=== PATIENT | male | born 1945 | race Caucasian/White ===

== ENCOUNTER → 2016-06-03 | Outpatient (CLI) | payer OTHER ==
[~2016-06-03] MED LIST: AMLO-110 PO; ASPI81TA28 PO; CYAN500T PO; FOLI1TAB7 PO; IMDSR/30 PO; LPT10 PO; MECL1TAB40 PO; METO50TA16 PO; NTRGSL/4 UT; OPTIRAY 320 IV PRN; PRLSR20 PO; ZNTT/150 PO
--- NOTE | 2016-06-03 14:15 | DIAGNOSTIC IMAGING REPORT ---
CT ANGIO ABD/PELVIS COMBO CT DOSE: 1068.28 mGy.cm CLINICAL HISTORY: F/U AAA REPAIR, EVAL STABILITY OF GRAFT FOLLOWING SURGERY TECHNIQUE: Unenhanced images were obtained through the abdomen and pelvis. The examination was then repeated in a dynamic helical fashion during intravenous administration 120 cc Optiray 320. 5 minute delayed images were also acquired. Motility was performed COMPARISON STUDY: 02/04/2016 FINDINGS: Images of the lung bases reveal mild pulmonary emphysema. There is a stable 7 mm hypodensity within the left lobe of the liver. This 24 mm hypervascular lesion within the right lobe of the liver, similar to the prior study. This focus is hypervascular on arterial phase images. It is difficult to discern on unenhanced and 5 minute delayed images. There is an additional 6 mm hypervascular focus within the left lobe of the liver. The gallbladder is unremarkable in appearance. No splenic masses are visualized. No pancreatic masses are visualized. There is mild adrenal gland thickening unchanged the prior study. There are 2 left renal cysts measuring 24 x 23 mm respectively. There are no transition zones indicate bowel obstruction. There is small fat-containing left inguinal hernia. There is evidence for abdominal aortic aneurysm status post aortoiliac stent repair. The yurok aneurysm measures 4.5 cm in diameter. There are no findings to indicate an endoleak. There is no evidence of iliac or common femoral artery stenosis. There is no evidence of renal artery stenosis. There are 2 left renal arteries and 2 right renal arteries. There is no evidence of celiac or superior mesenteric artery stenosis. IMPRESSION: 1. Interval stent graft repair of an abdominal aortic aneurysm. No evidence of endoleak 2. Persistent indeterminate hypervascular hepatic lesions, the largest of which is located within the right lobe measuring 24 mm. Electronically signed by: Madhu Yarbrough M.D. 06/03/2016 2:13 PM Dictated Date/Time: 06/03/2016 2:03 PM
== END | disposition home or self-care (01) ==
LOC: C.CTS 13:10
PROVIDERS: ATTEND Family Medicine
DX: I71.4 Abdominal aortic aneurysm, without rupture (principal); K76.9 Liver disease, unspecified; F17.200 Nicotine dependence, unspecified, uncomplicated

== ENCOUNTER 2024-04-25 14:49 | Inpatient (IN) ==
[2024-04-25 17:05] LABS: Basophils # (auto) 0.03 K/uL (0.00-0.20); Basophils % (auto) 0.3 %; Eosinophils # (auto) 0.04 K/uL (0.00-0.50); Eosinophils % (auto) 0.3 %; Hematocrit (blood only) 36.4 % (42.0-52.0); Hemoglobin 11.9 g/dl (14.0-18.0); Immature Granulocytes # (auto) 0.05 K/uL (0.01-0.20); Immature Granulocytes % (auto) 0.4 %; Lymphocytes # (auto) 0.79 K/uL (1.20-3.40); Lymphocytes % (auto) 6.6 %; Mean Corpuscular Hemoglobin 34.9 pg (25.0-34.0); Mean Corpuscular Hgb Conc 32.7 g/dL (32.0-36.0); Mean Corpuscular Volume 106.7 fL (80.0-100.0); Mean Platelet Volume 10.7 fL (9.4-12.4); Monocytes # (auto) 1.01 K/uL (0.11-0.59); Monocytes % (auto) 8.4 %; Neutrophils # (auto) 10.08 K/uL (1.40-6.50); Platelet Count 255 K/uL (130-400); RDW Coefficient of Variation 12.8 % (11.5-14.5); RDW Standard Deviation 50.7 fL (36.4-46.3); Red Blood Count 3.41 M/uL (4.70-6.10)
[2024-04-25 17:15] LABS: Alanine Aminotransferase 15 U/L (7-52); Albumin Globulin Ratio 1.4 (0.9-2); Albumin Level 4.6 gm/dl (3.4-5.0); Alkaline Phosphatase 65 U/L (34-104); Anion Gap 11 (3-11); Aspartate Aminotransferase 29 U/L (13-39); BUN Creatinine Ratio 17.3 (10-20); Bilirubin,Total 0.5 mg/dl (0.2-1.0); Blood Urea Nitrogen 118 mg/dl (6-23); Calcium 9.8 mg/dl (8.6-10.3); Carbon Dioxide 20 mmol/L (21-32); Chloride 103 mmol/L (98-107); Globulin 3.2 gm/dl (2.5-4.0); Glucose 93 mg/dl (70-99(Fasting)); Potassium 7.2 mmol/L (3.5-5.1); Sodium 134 mmol/L (136-145); Total Protein 7.8 gm/dl (6.0-8.3)
[2024-04-25 17:21] LABS: Adenovirus PCR Not Detected (NotDetected); Bordetella parapertussis PCR Not Detected (NotDetected); Bordetella pertussis PCR Not Detected (NotDetected); Chlamydia pneumoniae PCR Not Detected (NotDetected); Coronavirus 229E PCR Not Detected (NotDetected); Coronavirus CoV-2 (COVID19)PCR Not Detected (NotDetected); Coronavirus HKU1 PCR Not Detected (NotDetected); Coronavirus NL63 PCR Not Detected (NotDetected); Coronavirus OC43PCR Not Detected (NotDetected); Human Metapneumovirus PCR Not Detected (NotDetected); Influenza A PCR Not Detected (NotDetected); Influenza B PCR Not Detected (NotDetected); Mycoplasma pneumoniae PCR Not Detected (NotDetected); Parainfluenza Virus 1 PCR Not Detected (NotDetected); Parainfluenza Virus 2 PCR Not Detected (NotDetected); Parainfluenza Virus 3 PCR Not Detected (NotDetected); Parainfluenza Virus 4 PCR Not Detected (NotDetected); Respiratory Syncytial VirusPCR Not Detected (NotDetected); Rhinovirus/Enterovirus PCR Not Detected (NotDetected)
[2024-04-25 17:52] LABS: INR 1.1 (0.9-1.1); Partial Thromboplastin Time 26 Seconds (21-31); Prothrombin Time 11.8 Seconds (9.0-12.0)
--- NOTE | 2024-04-25 17:55 | Emergency Department Note ---
Impression & Plan Acute renal failure, Acute hyperkalemia, Acute diarrhea, Metabolic acidosis ED Provider Note NAME: JOSELIN [id number] SYLVIE AGE: 78 SEX: M : 1945 ARRIVES VIA: Walk-In INFORMANT: Patient, ED PROVIDER(S): Edilberto Dickerson DO CHIEF COMPLAINT: Low blood pressure. HPI: The patient is an 78-year-old male who presented to the emergency department for an evaluation of low blood pressure and orthostasis. The patient came from the intermediate. He had a few days of loose stools. He denies having any black or tarry stools. He denies having any vomiting. He denies having any abdominal pain. He has noticed decreased urine output. Today he went to try to stand up and his cell and he felt as though he was going to pass out. The patient denies having any headaches. He did not strike his head or his back. The patient presented to the emergency department and had laboratory studies ordered from triage. ROS: See above HPI for pertinent positives & negatives. A total of 10 systems reviewed and were otherwise negative. PAST MEDICAL HISTORY: See Below PAST SURGICAL HISTORY: See Below FAMILY HISTORY: See Below SOCIAL HISTORY: See Below HOME MEDICATIONS: See Below ALLERGIES: See Below VITALS: See Below PHYSICAL EXAMINATION: GENERAL: Patient is awake alert in no acute distress patient is resting comfortably and showing no signs of anxiety EYES: The conjunctivae are clear. The pupils are round and reactive. EARS, NOSE, MOUTH AND THROAT: The nose is without any evidence of any deformity. Mucous membranes are dry NECK: The neck is nontender and supple. RESPIRATORY: Normal respiratory effort is noted there is no evidence of wheezing rhonchi or rales CARDIOVASCULAR: Regular rate and rhythm noted there no murmurs rubs or gallops normal S1 normal S2. GASTROINTESTINAL: The abdomen is soft. Abdomen is nontender. MUSCULOSKELETAL/EXTREMITIES: There is no evidence of gross deformity full range of motion is noted in the hips and shoulders. SKIN: Skin is warm and dry. Trace pedal edema was noted bilaterally. NEUROLOGIC: Patient is awake alert and oriented x3. MEDICAL DECISION MAKING: The patient is an 78-year-old male who presented to the emergency department from the intermediate for an evaluation of hypotension. The patient has been experiencing loose stools recently. He was found to have signs of acute renal failure with elevated potassium. He was treated with multiple fluid boluses as well as a bicarbonate drip. He was also treated with calcium insulin and dextrose. I discussed the patient's condition with the on-call [facility] hospitalist group. I also discussed the case with the [facility] home specialist group. The patient was improved on reevaluation. Vital signs were reassuring. Chest x-ray was not consistent with pulmonary edema. Triage Nursing notes reviewed. Prior medical records reviewed Vital Signs: reviewed and remarkable for no significant abnormalities Differential diagnosis: Infection, dehydration, metabolic abnormality, hypo/hyperglycemia, electrolyte disturbance, anemia, hypoxia, cardiac sources, intracerebral event, toxicologic, neurologic, as well as other pathologies. ER treatment provided: See below Diagnostics interpreted by me: ECG: EKG was obtained in the emergency department. My interpretation is sinus rhythm at 102 bpm. There is no PVCs noted. QRS complex had a duration of 90 ms. Cardiac Monitoring: An order was placed for continuous cardiac monitoring. The monitor shows a rate of 76 bpm with sinus rhythm. Laboratory studies: As stated above and show below. Imaging studies: See below. Radiographic imaging was reviewed by myself Consultation(s): I discussed this case with Dr. Malik who is on-call for the [facility] hospitalist group. I discussed this case with Dr. Klein who is on for [facility] nephrology. He recommends a bicarb drip and rehydration. ED COURSE: Procedures: none Critical Care: I have personally spent greater than 45 minutes of critical care time in the direct management of this patient. This includes bedside care, interpretation of diagnostic studies, and testing, discussion with consultants, patient, and family members, and other required patient management activities. This 45 minutes is in excess of all separately billable procedures. Past Med/Surg History Problem List (Updated 04/26/24 @ 01:29 by Edilberto Dickerson DO) Acute renal failure (Acute) Metabolic acidosis (Acute) Acute diarrhea (Acute) Hypermagnesemia Acute hyperkalemia (Acute) Acute renal failure (ARF) Encounter for pre-operative examination AAA (abdominal aortic aneurysm) without rupture hx of--repaired 2016 Medical History Chronic obstructive pulmonary disease inhaler daily/prn CAD (coronary artery disease) Hearing deficit Acid reflux Vertigo Hyperlipidemia Hypertension Surgical History History of cataract surgery History of appendectomy History of abdominal aortic aneurysm (AAA) repair (~03/2016) percurtaneous endovascular repair--Dr. Starks @ [facility] Family History Other Family history unobtainable Social History Smoking Status: Former smoker Tobacco Type: Cigarettes Smoking End Date: 2019; Hx Alcohol Use: No Hx Substance Use: No Preferred Language: Romanian Communication Ability: Effective Aircraft Engine Technician Required: No Beliefs That Will Affect Care: None Current Living Situation: Legal Guardian Current Living Situation Comment: Inmate - from correctional facility. Feels Safe at Home: Yes Safety Concerns: Feels Safe At This Time Assistive Devices: Cane and Wheelchair Allergies Allergies Allergy/AdvReac Type Severity Reaction Status Date / Time Penicillins Allergy Unknown PER RECORD Verified 02/10/22 07:41 Home Meds Home Medications Medication Instructions Recorded Confirmed albuterol sulfate 90 mcg/actuation 2 puff inhalation QID PRN 08/20/21 12/11/21 aerosol inhaler Shortness Of Breath aspirin 81 mg chewable tablet 81 mg PO DAILY 08/20/21 12/11/21 atorvastatin 10 mg tablet 10 mg PO DAILY 08/20/21 12/11/21 fluticasone 250 mcg-salmeterol 50 1 inh inhalation BID 08/20/21 12/11/21 mcg/dose blistr powdr for inhalation (Wixela Inhub) folic acid 1 mg tablet 1 mg PO DAILY 08/20/21 12/11/21 furosemide 40 mg tablet 40 mg PO BID 08/20/21 12/11/21 isosorbide mononitrate 30 mg 30 mg PO DAILY 08/20/21 12/11/21 tablet,extended release 24 hr lisinopril 20 mg tablet 20 mg PO DAILY 08/20/21 12/11/21 meclizine 12.5 mg tablet 12.5 mg PO TID 08/20/21 12/11/21 metoprolol tartrate 50 mg tablet 50 mg PO BID 08/20/21 12/11/21 nitroglycerin 0.4 mg sublingual 0.4 mg sublingual QID PRN Chest 08/20/21 12/11/21 tablet Pain Results & Data (ED) Vital Signs Vital Signs - 24 hr 04/25/24 14:58 04/25/24 17:18 04/25/24 17:23 Temperature 36.8 C Temperature Source Temporal Artery Scan Pulse Rate 75 78 Pulse Rate [Apical] Respiratory Rate 20 Respiratory Effort / Characteristics Non-Labored Spontaneous Respiratory Depth Normal Respiratory Pattern Regular Blood Pressure 99/63 L Blood Pressure [Right Arm] Blood Pressure Mean 75 Blood Pressure Mean [Right Arm] Pulse Oximetry 94 83 L Oxygen Delivery Method Room Air Room Air Oxygen Flow Rate Sepsis Recent Fever Within 48 Hours No Sepsis New/Unexplained Change in Mental Status No Sepsis Action Taken by Nursing No Action Required Oxygen Flow Rate - Titration 2 Pulse Oximetry Post Tiitration 99 04/25/24 17:23 04/25/24 19:00 Temperature Temperature Source Pulse Rate Pulse Rate [Apical] 75 92 H Respiratory Rate 19 30 H Respiratory Effort / Characteristics Non-Labored Spontaneous Non-Labored Spontaneous Respiratory Depth Normal Normal Respiratory Pattern Regular Blood Pressure Blood Pressure [Right Arm] 117/81 96/53 L Blood Pressure Mean Blood Pressure Mean [Right Arm] 93 67 Pulse Oximetry 99 96 Oxygen Delivery Method Nasal Cannula Nasal Cannula Oxygen Flow Rate 2 2 Sepsis Recent Fever Within 48 Hours Sepsis New/Unexplained Change in Mental Status Sepsis Action Taken by Nursing Oxygen Flow Rate - Titration Pulse Oximetry Post Tiitration Home Medications Current Medication List: was personally reviewed by me Laboratory Data Attestation: I reviewed the patient's lab results. 04/25/24 16:33 04/25/24 23:18 Lab Results 04/25/24 04/25/24 04/25/24 Range/Units 16:25 16:33 18:14 WBC 12.00 H (4.8-10.8) K/ul RBC 3.41 L (4.70-6.10) M/uL Hgb 11.9 L (14.0-18.0) g/dl Hct 36.4 L (42.0-52.0) % MCV 106.7 H (80.0-100.0) fL MCH 34.9 H (25.0-34.0) pg MCHC 32.7 (32.0-36.0) g/dL RDW Std Deviation 50.7 H (36.4-46.3) fL RDW Coeff of Corey 12.8 (11.5-14.5) % Plt Count 255 (130-400) K/uL MPV 10.7 (9.4-12.4) fL Immature Gran % (Auto) 0.4 % Neut % (Auto) 84.0 % Lymph % (Auto) 6.6 % Winkler % (Auto) 8.4 % Eos % (Auto) 0.3 % Baso % (Auto) 0.3 % Neut # (Auto) 10.08 H (1.40-6.50) K/uL Lymph # (Auto) 0.79 L (1.20-3.40) K/uL Winkler # (Auto) 1.01 H (0.11-0.59) K/uL Eos # (Auto) 0.04 (0.00-0.50) K/uL Baso # (Auto) 0.03 (0.00-0.20) K/uL Immature Gran # (Auto) 0.05 (0.01-0.20) K/uL PT 11.8 (9.0-12.0) Seconds INR 1.1 (0.9-1.1) APTT 26 (21-31) Seconds PTT Ratio 1.0 Sodium 134 L (136-145) mmol/L Potassium 7.2 H* (3.5-5.1) mmol/L Chloride 103 (98-107) mmol/L Carbon Dioxide 20 L (21-32) mmol/L Anion Gap 11 (3-11) BUN 118 H (6-23) mg/dl Creatinine 6.84 H* (0.6-1.4) mg/dl Est Cr Clr Drug Dosing Not Reportable eGFR 7.57 BUN/Creatinine Ratio 17.3 (10-20) Glucose 93 (70-99(Fasting)) mg/dl Calcium 9.8 (8.6-10.3) mg/dl Magnesium 3.1 H (1.7-2.4) mg/dl Total Bilirubin 0.5 (0.2-1.0) mg/dl AST 29 (13-39) U/L ALT 15 (7-52) U/L Alkaline Phosphatase 65 (34-104) U/L Troponin I High Sens 23.1 H (0-20) pg/ml Total Protein 7.8 (6.0-8.3) gm/dl Albumin 4.6 (3.4-5.0) gm/dl Globulin 3.2 (2.5-4.0) gm/dl Albumin/Globulin Ratio 1.4 (0.9-2) Urine Color Yellow Urine Appearance Clear (Clear) Urine pH 5.0 (4.5-7.5) Ur Specific [place] 1.015 (1.000-1.030) Urine Protein Trace H (Negative) Urine Glucose (UA) Negative (Negative) Urine Ketones Negative (Negative) Urine Blood Negative (Negative) Urine Nitrite Negative (Negative) Urine Bilirubin Negative (Negative) Urine Urobilinogen Negative (Negative) Ur Leukocyte Esterase Negative (Negative) Urine WBC (Auto) 0-5 (0-5) /hpf Urine RBC (Auto) 0-2 (0-2) /hpf U Hyaline Cast (Auto) 6-10 H (0-2) /lpf U Epithel Cells (Auto) 0-2 (0-2) /hpf Urine Bacteria (Auto) None Seen (None Seen) Hyaline Casts Present A (None Presnt) /lpf Urine Sperm Present A (None Prsent) Adenovirus (PCR) Not Detected (NotDetected) B. pertussis DNA (PCR) Not Detected (NotDetected) B.parapertussis DNA PCR Not Detected (NotDetected) C. pneumoniae DNA (PCR) Not Detected (NotDetected) Coronavirus OC43 (PCR) Not Detected (NotDetected) Coronavirus HKU1 (PCR) Not Detected (NotDetected) Coronavirus 229E (PCR) Not Detected (NotDetected) SARS-CoV-2 (PCR) Not Detected (NotDetected) Coronavirus NL63 (PCR) Not Detected (NotDetected) Human Metapneumovir PCR Not Detected (NotDetected) Influenza Type A (PCR) Not Detected (NotDetected) Influenza Type B (PCR) Not Detected (NotDetected) M. pneumoniae (PCR) Not Detected (NotDetected) Parainfluenza 1 (PCR) Not Detected (NotDetected) Parainfluenza 2 (PCR) Not Detected (NotDetected) Parainfluenza 3 (PCR) Not Detected (NotDetected) Parainfluenza 4 (PCR) Not Detected (NotDetected) RSV (PCR) Not Detected (NotDetected) Entero/Rhino (PCR) Not Detected (NotDetected) Administered Medications Albuterol (Albut/Ipratrop 3mg/0.5mg Neb 3 Ml Vial) 3 ml INH Q6R EULA Stop: 05/25/24 20:06 Last Admin: 04/25/24 21:07 Dose: 3 ml Documented By: EML Sodium Bicarbonate 100 meq/ (Dextrose) 1,100 mls @ 150 mls/hr IV .Q7H20M EULA Stop: 04/26/24 20:14 Last Admin: 04/25/24 20:48 Dose: 150 mls/hr Documented By: ESG Metoprolol Tartrate (Metoprolol Tartrate 50 Mg Tab) 50 mg PO BID EULA Stop: 05/25/24 20:59 Last Admin: 04/25/24 22:40 Dose: 50 mg Documented By: ESSharon Sodium Zirconium Cyclosilicate (Sodium Zirconium Cyclosilicate 10 Gm Packet) 10 gm PO TID@0700,1400,2300 EULA Stop: 04/27/24 14:01 Last Admin: 04/25/24 22:40 Dose: 10 gm Documented By: ESSharon Discontinued Medications Dextrose (Dextrose 50% 50 Ml Syringe) 50 ml IV NOW STA Stop: 04/25/24 17:28 Last Admin: 04/25/24 18:34 Dose: 50 ml Documented By: LEIA Dextrose (Dextrose 50% 50 Ml Syringe) Confirm Administered Dose 50 ml IV .STK- MED ONE Stop: 04/25/24 20:40 Last Admin: 04/25/24 20:45 Dose: 50 ml Documented By: MARTINEZ Dextrose (Dextrose 50% 50 Ml Syringe) 50 ml IV NOW ONE Stop: 04/26/24 00:35 Last Admin: 04/26/24 01:10 Dose: 50 ml Documented By: ESSharon Calcium Chloride 1,000 mg/ (Dextrose) 60 mls @ 240 mls/hr IV NOW STA Stop: 04/25/24 17:41 Last Infusion: 04/25/24 18:30 Dose: Infused Documented By: Admin: 04/25/24 18:12 Dose: 240 mls/hr Documented By: LEIA Sodium Chloride (Nss) 1,000 mls @ 999 mls/hr IV .Q1H1M ONE Stop: 04/25/24 18:35 Last Infusion: 04/25/24 22:43 Dose: Infused Documented By: Infusion: 04/25/24 20:05 Dose: 0 mls/hr Documented By: Infusion: 04/25/24 19:28 Dose: 999 mls/hr Documented By: Infusion: 04/25/24 19:09 Dose: 0 mls/hr Documented By: Admin: 04/25/24 19:05 Dose: 999 mls/hr Documented By: LEIA Sodium Chloride (Nss) 1,000 mls @ 999 mls/hr IV .Q1H1M ONE Stop: 04/25/24 19:26 Last Infusion: 04/25/24 22:44 Dose: Infused Documented By: Admin: 04/25/24 21:14 Dose: 999 mls/hr Documented By: MARTINEZ Calcium Gluconate () 1,000 mg in 60 mls @ 240 mls/hr IV NOW STA Stop: 04/26/24 00:54 Last Admin: 04/26/24 01:05 Dose: 240 mls/hr Documented By: MARTINEZ Insulin Human Regular 10 units (/ Syringe) 10 mls @ 30 mls/min IV ONE STA Stop: 04/26/24 00:43 Last Admin: 04/26/24 01:10 Dose: 30 mls/min Documented By: MARTINEZ Co-signed By: FRANCISCO JAVIER Insulin Human Regular (Novolin-R Insulin Per Unit Charge) 10 units IV NOW STA Stop: 04/25/24 17:28 Last Admin: 04/25/24 18:34 Dose: 10 units Documented By: LEIA Co-signed By: CAW Sodium Bicarbonate (Sodium Bicarb 8.4% Inj 50 Meq/50 Ml Syr) 50 meq IV NOW STA Stop: 04/25/24 20:08 Last Admin: 04/25/24 20:30 Dose: 50 meq Documented By: MARTINEZ Imaging Data Attestation: I personally reviewed and interpreted this imaging study as follows: My Impression: 1 view chest x-ray was obtained in the emergency department. My interpretation is no definite infiltrate, final report below. CT of the abdomen and pelvis was obtained in the emergency department. My interpretation is no free air or signs of bowel obstruction, final report below. Radiologist's Impression: Chest X-Ray 12/03/24 17:30 EXAM: X-ray chest one-view portable CLINICAL HISTORY: Short of breath PRIORS: 04/21/2016 TECHNIQUE: Portable upright AP view chest FINDINGS: The chest is well-expanded. No airspace consolidation, effusion or congestive changes. Heart size is top normal. No pneumothorax. Trachea is patent. Osseous structures demonstrate no acute abnormality. No radiopaque foreign body. IMPRESSION: No plain film evidence of an acute cardiopulmonary process. Electronically signed by Emani Belle 04-25-2024 6:31 PM Abdomen/Pelvis CT 04/25/24 17:35 EXAMINATION: Abdomen and pelvis CT without CLINICAL HISTORY: Acute renal failure PRIORS: 06/03/2016 CT abdomen TECHNIQUE: Contiguous axial images were obtained through the abdomen and pelvis without the use of intravenous contrast. Sagittal and coronal reformations are supplied. FINDINGS: Pulmonary emphysema present at the lung bases. Motion artifact degrades image quality. Evaluation of solid organs is limited without the use of intravenous contrast. Allowing for this, the liver, gallbladder, pancreas, spleen, stomach, adrenals, and IVC are normal in morphology. An aortic stent is present with no surrounding fluid and not further evaluated. Allowing for noncontrast enhanced technique, kidneys appear atrophic. No hydronephrosis. Bilateral perinephric stranding present suggesting underlying medical renal disease. A left renal low-attenuation lesion present projecting off of the lower pole measuring fluid attenuation and 3.6 cm, likely representing a simple cyst. No retroperitoneal adenopathy or hematoma. No ascites. Small umbilical hernia containing fat. Urinary bladder distends normally. Small left inguinal hernia present containing fat. Prostate normal in size. A moderate amount of formed stool present in the colon. No dilated loops of bowel. No inflammatory change in the right lower quadrant. In bone windows, moderate osseous demineralization and degenerative change throughout the lumbar spine. No high-grade compression fracture. IMPRESSION: 1. No CT evidence of an acute abdominal or pelvic abnormality. 2. No hydronephrosis or obstructing calculus. 3. Postsurgical change of the aorta with graft in place. Electronically signed by Emani Belle 04-25-2024 6:07 PM Discharge Plan Visit Data Chief Complaint: Hypotension Stated Complaint: HYPOTENTION, UNABLE TO STAND/ASSISTANCE, DIARRHEA ED Provider: Edilberto Dickerson Discharge Problem: Acute renal failure, Acute hyperkalemia, Acute diarrhea, Metabolic acidosis Patient Disposition: Admitted As Inpatient Discharge Instructions Interventions: ED Discharge Assessment Last Done: 04/25/24 19:47 Discharge Problem: Acute renal failure Qualifiers: Acute renal failure type: unspecified Qualified Code(s): N17.9 - Acute kidney failure, unspecified
--- NOTE | 2024-04-25 18:07 | CT Scan Report ---
EXAMINATION: Abdomen and pelvis CT without CLINICAL HISTORY: Acute renal failure PRIORS: 06/03/2016 CT abdomen TECHNIQUE: Contiguous axial images were obtained through the abdomen and pelvis without the use of intravenous contrast. Sagittal and coronal reformations are supplied. FINDINGS: Pulmonary emphysema present at the lung bases. Motion artifact degrades image quality. Evaluation of solid organs is limited without the use of intravenous contrast. Allowing for this, the liver, gallbladder, pancreas, spleen, stomach, adrenals, and IVC are normal in morphology. An aortic stent is present with no surrounding fluid and not further evaluated. Allowing for noncontrast enhanced technique, kidneys appear atrophic. No hydronephrosis. Bilateral perinephric stranding present suggesting underlying medical renal disease. A left renal low-attenuation lesion present projecting off of the lower pole measuring fluid attenuation and 3.6 cm, likely representing a simple cyst. No retroperitoneal adenopathy or hematoma. No ascites. Small umbilical hernia containing fat. Urinary bladder distends normally. Small left inguinal hernia present containing fat. Prostate normal in size. A moderate amount of formed stool present in the colon. No dilated loops of bowel. No inflammatory change in the right lower quadrant. In bone windows, moderate osseous demineralization and degenerative change throughout the lumbar spine. No high-grade compression fracture. IMPRESSION: 1. No CT evidence of an acute abdominal or pelvic abnormality. 2. No hydronephrosis or obstructing calculus. 3. Postsurgical change of the aorta with graft in place. Electronically signed by Emani Belle 04-25-2024 6:07 PM
[2024-04-25] MEDS: CALCIUM CHLORIDE 10% 1,000 MG in DEXTROSE 5% 50 ML IV STA (18:12)
[2024-04-25 18:16] LABS: Magnesium 3.1 mg/dl (1.7-2.4)
[2024-04-25 18:30] LABS: Troponin I High Sensitivity 23.1 pg/ml (0-20)
--- NOTE | 2024-04-25 18:31 | XRay Report ---
EXAM: X-ray chest one-view portable CLINICAL HISTORY: Short of breath PRIORS: 04/21/2016 TECHNIQUE: Portable upright AP view chest FINDINGS: The chest is well-expanded. No airspace consolidation, effusion or congestive changes. Heart size is top normal. No pneumothorax. Trachea is patent. Osseous structures demonstrate no acute abnormality. No radiopaque foreign body. IMPRESSION: No plain film evidence of an acute cardiopulmonary process. Electronically signed by Emani Belle 04-25-2024 6:31 PM
[2024-04-25] MEDS: NovoLIN-R INSULIN PER UNIT CHARGE IV STA (18:34)
[2024-04-25] MEDS: DEXTROSE 50% 50 ML SYRINGE IV STA (18:34)
[2024-04-25 19:02] LABS: Appearance Urine Clear (Clear); Bacteria Urine Automated None Seen (None Seen); Bilirubin Urine Negative (Negative); Blood Urine Negative (Negative); Color Urine Yellow; Epithelial Cell Urine Auto 0-2 /hpf (0-2); Glucose Urine UA Negative (Negative); Hyaline Casts Urine Present /lpf (None Presnt); Ketones Urine Negative (Negative); Leukocyte Esterase Urine Negative (Negative); Nitrite Urine Negative (Negative); Protein Urine Trace (Negative); RBC Urine Automated 0-2 /hpf (0-2); Specific Gravity Urine 1.015 (1.000-1.030); Sperm Urine Present (None Prsent); Urobilinogen Urine Negative (Negative); WBC Urine Automated 0-5 /hpf (0-5)
[2024-04-25] MEDS: SODIUM CHLORIDE 0.9% 1,000 ML IV ONE ×2 (19:05→21:14)
--- NOTE | 2024-04-25 19:06 | History & Physical Report ---
Date of Service April 25, 2024 Assessment & Plan (1) Acute renal failure (ARF): (2) Acute hyperkalemia: (3) Hypermagnesemia: (4) Acute diarrhea: (5) Chronic obstructive pulmonary disease: (6) CAD (coronary artery disease): (7) Hypertension: (8) History of abdominal aortic aneurysm (AAA) repair: Plan Patient 78-year-old prisoner presents with acute weakness and falling found to have severe acute renal failure in the setting of diarrheal illness and numerous nephrotoxins. Patient is critically ill high risk for poor outcomes if not cared for in the hospital. Patient requires ICU level care, frequent laboratory monitoring, specialty consultation and frequent monitoring Communication with wood heel flap inserter for plan to admit to ICU Communication with ED physician who communicated with nephrology. Treat hyperkalemia in usual manner for insulin, calcium, IV fluids. Start bicarb drip and Lokelma Continue inhalers and nebulizers Frequent laboratory monitoring Initiated conversation with patient that he may need hemodialysis and would need to give consent for this procedure. Patient seem to understand Echocardiogram in the setting of hypertension, patient was on a fairly large dose of Lasix. No history reported of heart failure. Patient has not had any diarrhea here in the emergency department, check stool bio fire and stool for C. difficile. Will hold on any treatments for diarrhea until further data available and able to observed patient's stool habits. History of Present Illness Chief Complaint: Diarrhea, weakness and fall Primary Care Provider: NADE[facility] Patient is a 78-year-old gentleman prisoner from [place] presented to the emergency department with above complaints. Workup in the emergency room was significant for acute renal failure and hyperkalemia. He was given insulin and calcium in the emergency department. Referred to our service for further evaluation. Time my evaluation patient is able to answer some simple questions. States his head 4-5 episodes of diarrhea daily for the past 3 days. No blood in the stool. Has been taking his medications as prescribed. Denies any chest pain. No shortness of breath. No significant abdominal pain. Never been told that he has issues with his kidneys before.He is aware that he has COPD and uses daily inhalers. On medications for hypertension. Allergies Allergy/AdvReac Type Severity Reaction Status Date / Time Penicillins Allergy Unknown PER RECORD Verified 02/10/22 07:41 Home Medications Medication Instructions Recorded Confirmed Type albuterol sulfate 90 mcg/actuation 2 puff inhalation QID PRN 08/20/21 12/11/21 History aerosol inhaler Shortness Of Breath aspirin 81 mg chewable tablet 81 mg PO DAILY 08/20/21 12/11/21 History atorvastatin 10 mg tablet 10 mg PO DAILY 08/20/21 12/11/21 History fluticasone 250 mcg-salmeterol 50 1 inh inhalation BID 08/20/21 12/11/21 History mcg/dose blistr powdr for inhalation (Wixela Inhub) folic acid 1 mg tablet 1 mg PO DAILY 08/20/21 12/11/21 History furosemide 40 mg tablet 40 mg PO BID 08/20/21 12/11/21 History isosorbide mononitrate 30 mg 30 mg PO DAILY 08/20/21 12/11/21 History tablet,extended release 24 hr lisinopril 20 mg tablet 20 mg PO DAILY 08/20/21 12/11/21 History meclizine 12.5 mg tablet 12.5 mg PO TID 08/20/21 12/11/21 History metoprolol tartrate 50 mg tablet 50 mg PO BID 08/20/21 12/11/21 History nitroglycerin 0.4 mg sublingual 0.4 mg sublingual QID PRN Chest 08/20/21 12/11/21 History tablet Pain Past Med/Surg History Problem List (Updated 04/25/24 @ 19:12 by Barry White DO) Acute diarrhea Hypermagnesemia Acute hyperkalemia Acute renal failure (ARF) Encounter for pre-operative examination AAA (abdominal aortic aneurysm) without rupture hx of--repaired 2015 Medical History Chronic obstructive pulmonary disease inhaler daily/prn CAD (coronary artery disease) Hearing deficit Acid reflux Vertigo Hyperlipidemia Hypertension Surgical History History of cataract surgery History of appendectomy History of abdominal aortic aneurysm (AAA) repair (~03/2016) percurtaneous endovascular repair--Dr. Starks @ [facility] Family History Other Family history unobtainable Social History Smoking Status: Former smoker Preferred Language: Cypriot Communication Ability: Effective Senior Information Security Architect Required: No Beliefs That Will Affect Care: None Current Living Situation: Other Current Living Situation Comment: Incarcerated at [facility] Feels Safe at Home: Yes Review of Systems Review of Systems: Pertinent positive and negative review of systems as mentioned in the HPI Physical Exam Physical Exam: Constitutional: Alert, ill in appearance, nontoxic HEENT: Mucous membranes dry sclera clear Neck: Soft, no adenopathy Lungs: Decreased breath sounds, poor airflow, prolonged expiratory phase, expiratory wheezes CV: S1-S2, regular Abdomen: Soft, nontender, nondistended Extremities: No significant edema Musculoskeletal: No significant joint tenderness Neuro: No focal deficits, generalized weakness Psych: Cooperative, normal mood Results & Data Results & Data Vital Signs (Past 12 Hours) Vital Signs Temp Pulse Pulse Resp BP BP Pulse Ox 04/25/24 17:23 75 19 117/81 99 04/25/24 17:23 83 L 04/25/24 17:18 78 04/25/24 14:58 36.8 C 75 20 99/63 L 94 O2 Del Method O2 Flow Rate 04/25/24 17:23 Nasal Cannula 2 04/25/24 17:23 Room Air 04/25/24 17:18 04/25/24 14:58 Room Air Diagnostic Findings Reviewed imaging, laboratory and diagnostic studies. Pertinent findings as below. Personally reviewed chest x-ray, emphysematous lungs, no effusions, no infiltrative process Reviewed CT of the abdomen and pelvis no acute abnormalities, no hydronephrosis Respiratory viral panel negative Personally reviewed EKG sinus rhythm with some PVCs, slightly peaked T waves in leads II, V3, V4 Urinalysis significant for trace proteins Troponin 23 Magnesium 3.1 Creatinine 6.84 BUN 118 Bicarb 20, anion gap 11 Potassium 7.2 Sodium 134 Hemoglobin 11.9 WBCs 12.0
[2024-04-25 19:48] LABS: Base Excess VBG -11.2 mEq/L; HCO3 VBG 18 mmol/L; Oxygen Saturation VBG < 60.0 %; PCO2 VBG 51 mmHg (38-50); PO2 VBG 31 mmHg; pH VBG 7.15 (7.36-7.41)
[2024-04-25] MEDS ORDERED: STAT IV/IM STA (20:07)
[2024-04-25] MEDS ORDERED: ALBUT/IPRATROP 3MG/0.5MG NEB 3 ML VIAL NEB PRN (20:07)
[2024-04-25 20:11] LABS: BUN Creatinine Ratio 18.2 (10-20); Calcium 9.6 mg/dl (8.6-10.3); Creatinine Clr Calc Pharmacy 9.9 ml/min
[2024-04-25 20:14] LABS: Potassium 6.7 mmol/L (3.5-5.1)
[2024-04-25] MEDS: SODIUM BICARB 8.4% INJ 50 MEQ/50 ML SYR IV STA (20:30)
[2024-04-25] MEDS: DEXTROSE 50% 50 ML SYRINGE IV ONE (20:45)
[2024-04-25] MEDS: SODIUM BICARBONATE 8.4% 100 MEQ in DEXTROSE 5% 1,000 ML IV SCH (20:48)
[2024-04-25] MEDS ORDERED: GLUCOSE 40% GEL 15 GM TUBE PO PRN (20:54)
[2024-04-25] MEDS ORDERED: GLUCOSE 10 TAB/TUBE PO PRN (20:54)
[2024-04-25] MEDS ORDERED: CARBOHYDRATES FOR HYPOGLYCEMIA PO PRN (20:54)
[2024-04-25] MEDS ORDERED: DEXTROSE 50% 50 ML SYRINGE IV PRN (20:54)
[2024-04-25] MEDS ORDERED: GLUCAGON FOR INJ 1 MG VIAL SQ PRN (20:54)
[2024-04-25] MEDS ORDERED: SODIUM ZIRCONIUM CYCLOSILICATE 10 GM PACKET PO SCH (21:00)
[2024-04-25] MEDS: ALBUT/IPRATROP 3MG/0.5MG NEB 3 ML VIAL INH SCH (21:07)
--- NOTE | 2024-04-25 21:15 | Critical Care Consultation ---
Date of Consultation April 25, 2024 Assessment & Plan (1) Acute renal failure (ARF): Reason Critically Ill: 78-year-old male with history of COPD, CAD, HTN, HLD, AAA, presents to the ICU for management of acute renal failure with hyperkalemia and metabolic acidosis after 3 days of diarrhea in which the patient presents hypovolemic. Neuro - [facility] ICU: Negative Cardiac - Diastolic heart failureappears stable as of now. Patient currently dehydrated. Continue with fluid resuscitation. Hold Lasix in the setting of acute renal failure. Monitor strict I's and O's, daily weights. Follow-up TTE AAAstatus post graft. No issue at this time HTNhold lisinopril in the setting of renal failure. Continue Metoprolol CADcontinue ASA Respiratory - COPDstable at this time although patient reports using rescue inhaler multiple times per day despite use of LABA -Currently maintaining oxygen saturations on nasal cannula, wean as tolerated for SaO2 90% - Continue with scheduled nebs for now -Chest x-ray unremarkable -Continuous monitoring pulse ox GI - N.p.o. for now RENAL/LYTES - Acute renal failure/hyperkalemia/metabolic acidosislikely prerenal in the setting of Dehydration, patient also taking lisinopril and Lasix. -Nephrology consulted and admitted to ICU for medical management at this time to see if renal function improves. No indication for hemodialysis emergently. - Started on bicarb drip. Trend VBG's - Hyperkalemia improving. Initially treated with calcium and insulin. Giving bicarb drip. Trend BMPs Q4. Starting on Lokelma - Foleystrict I's and O's ENDO - No history of diabetes or thyroid disease. ICU hyperglycemic protocol HEME - H&H stable, monitor routine CBC ID - Currently afebrile. Mild leukocytosis. Procalcitonin currently pending - Stool bio fire pending -Hold on antibiotics for now and trend fever curve LINES/IV ACCESS - Peripheral IVs DVT PROPHYLAXIS - SCDs I have personally spent 51 minutes of critical care time in the direct management of this patient. This is a life/limb threatening event. This includes time spent evaluating patient, direct bedside care, chart review, placing orders, interpretation of diagnostic studies, discussion with consultants, patient, and family members, as well as other required patient management activities. This time is exclusive of all separately billable procedures, and teaching time and separate from and in addition to any other critical care service time. Thank you for allowing us to participate in the care of this patient. Please refer to my attending physician's documentation for any further recommendations. (2) Acute hyperkalemia: (3) Metabolic acidosis: (4) Acute diarrhea: (5) CAD (coronary artery disease): (6) Hypertension: (7) Hyperlipidemia: (8) Chronic obstructive pulmonary disease: History of Present Illness Attending Physician: Barry White DO History of Present Illness Patient is a 78-year-old male w/ PMH COPD, diastolic heart failure, CAD, HTN who presents from the long-term with acute weakness and fall after having 3 days of diarrhea. BMP consistent with acute renal failure and hyperkalemia which was initially treated with calcium gluconate and insulin and D50. He was given 2 L crystalloid bolus in the emergency department and is found to have significant metabolic acidosis and was started on bicarb drip. Patient now being admitted to ICU for management of acute renal failure, hyperkalemia, and metabolic acidosis. Nephrology consulted and no plans for emergent dialysis at this time but will continue with medical management and hope that renal function improves. On arrival to the ICU the patient is alert and oriented without acute distress, currently hemodynamically stable. Patient conference report of 3 days of diarrhea in which at times he was incontinent, and had significant weakness with 1 nontraumatic fall. He reports that he was taking his lisinopril and Lasix as prescribed at that time. He also reports shortness of breath intermittently which has been ongoing for a long time, and he uses a rescue Inhaler multiple times throughout the day. He also reports lower back pain which is also chronic. He denies headache, dizziness, syncopal events, changes in vision, numbness or tingling, muscular weakness, fevers, cough or congestion, chest pain or palpitations, abdominal pain, nausea or vomiting, swelling in hands or feet. Allergies Allergy/AdvReac Type Severity Reaction Status Date / Time Penicillins Allergy Unknown PER RECORD Verified 02/10/22 07:41 Home Medications Medication Instructions Recorded Confirmed Type albuterol sulfate 90 mcg/actuation 2 puff inhalation QID PRN 08/20/21 12/11/21 History aerosol inhaler Shortness Of Breath aspirin 81 mg chewable tablet 81 mg PO DAILY 08/20/21 12/11/21 History atorvastatin 10 mg tablet 10 mg PO DAILY 08/20/21 12/11/21 History fluticasone 250 mcg-salmeterol 50 1 inh inhalation BID 08/20/21 12/11/21 History mcg/dose blistr powdr for inhalation (Wixela Inhub) folic acid 1 mg tablet 1 mg PO DAILY 08/20/21 12/11/21 History furosemide 40 mg tablet 40 mg PO BID 08/20/21 12/11/21 History isosorbide mononitrate 30 mg 30 mg PO DAILY 08/20/21 12/11/21 History tablet,extended release 24 hr lisinopril 20 mg tablet 20 mg PO DAILY 08/20/21 12/11/21 History meclizine 12.5 mg tablet 12.5 mg PO TID 08/20/21 12/11/21 History metoprolol tartrate 50 mg tablet 50 mg PO BID 08/20/21 12/11/21 History nitroglycerin 0.4 mg sublingual 0.4 mg sublingual QID PRN Chest 08/20/21 12/11/21 History tablet Pain Patient History Medical History Chronic obstructive pulmonary disease inhaler daily/prn CAD (coronary artery disease) Hearing deficit Acid reflux Vertigo Hyperlipidemia Hypertension Surgical History History of cataract surgery History of appendectomy History of abdominal aortic aneurysm (AAA) repair (~03/2016) percurtaneous endovascular repair--Dr. Starks @ [facility] Family History Other Family history unobtainable Social History Smoking Status: Former smoker Preferred Language: Croatian Communication Ability: Effective Inspector And Unloader Required: No Beliefs That Will Affect Care: None Current Living Situation: Other Current Living Situation Comment: Incarcerated at [facility] Feels Safe at Home: Yes Review of Systems Review of Systems: All systems reviewed & are unremarkable except as noted in HPI & below Physical Exam Constitutional: + obese, cooperative and comfortable Eyes: PERRL, conjunctivae normal, anicteric sclerae ENMT: external ear and nose normal, oropharynx normal Neck: trachea midline, no thyromegaly Respiratory: Diminished breath sounds bilaterally in all lung [place], no wheezes or crackles auscultated. No labored breathing or tachypnea. Symmetrical chest wall movement Cardiovascular: Rate/Rhythm: regular rate and regular rhythm Heart Sounds: normal S1 and normal S2; no murmur Extremities: no edema Gastrointestinal (Abdomen): normal bowel sounds, soft, nontender, no hepatosplenomegaly Musculoskeletal: no cyanosis or clubbing, extremities motor strength 5/5 Skin: no rashes, warm and dry Neurologic: PERRL, EOMI, accommodation nl, no face palsy, no dysarthria Psychiatric: A+Ox3, euthymic affect Results & Data Results & Data Vital Signs (Past 12 Hours) Vital Signs Temp Pulse Pulse Resp BP BP Pulse Ox 04/25/24 19:47 95 H 25 H 113/71 99 04/25/24 19:40 113/71 04/25/24 19:00 92 H 30 H 96/53 L 96 04/25/24 17:23 75 19 117/81 99 04/25/24 17:23 83 L 04/25/24 17:18 78 04/25/24 14:58 36.8 C 75 20 99/63 L 94 O2 Del Method O2 Flow Rate 04/25/24 19:47 Nasal Cannula 2 04/25/24 19:40 04/25/24 19:00 Nasal Cannula 2 04/25/24 17:23 Nasal Cannula 2 04/25/24 17:23 Room Air 04/25/24 17:18 04/25/24 14:58 Room Air Coding Level of Care Code 07275 CRITICAL CARE 1ST 30-74M Diagnoses Acute renal failure (ARF) N17.9 Acute hyperkalemia E87.5 Metabolic acidosis E87.20 Acute diarrhea R19.7 CAD (coronary artery disease) I25.10 Hypertension I10 Hyperlipidemia E78.5 Chronic obstructive pulmonary disease J44.9
[2024-04-25] MEDS: SODIUM ZIRCONIUM CYCLOSILICATE 10 GM PACKET PO SCH (22:40)
[2024-04-25] MEDS: METOPROLOL TARTRATE 50 MG TAB PO SCH (22:40)
[2024-04-25 23:25] LABS: Base Excess VBG -6.6 mEq/L; HCO3 VBG 20 mmol/L; Oxygen Saturation VBG < 60.0 %; PCO2 VBG 44 mmHg (38-50); PO2 VBG 32 mmHg; pH VBG 7.27 (7.36-7.41)
[2024-04-26 00:26] LABS: BUN Creatinine Ratio 18.9 (10-20); Calcium 8.8 mg/dl (8.6-10.3); Creatinine Clr Calc Pharmacy 11.3 ml/min; Magnesium 2.6 mg/dl (1.7-2.4); Potassium 6.7 mmol/L (3.5-5.1)
[2024-04-26] MEDS: CALCIUM GLUCONATE 1,000 MG/60 ML BAG IV STA (01:05)
[2024-04-26] MEDS: DEXTROSE 50% 50 ML SYRINGE IV ONE (01:10)
[2024-04-26] MEDS: INSULIN HUMAN REGULAR PER UNIT 10 UNITS in SYRINGE 9.9 ML IV STA (01:10)
[2024-04-26 04:49] LABS: Base Excess VBG -2.2 mEq/L; HCO3 VBG 23 mmol/L; Oxygen Saturation VBG < 60.0 %; PCO2 VBG 41 mmHg (38-50); PO2 VBG 32 mmHg; pH VBG 7.36 (7.36-7.41)
[2024-04-26 04:54] LABS: Hematocrit (blood only) 30.9 % (42.0-52.0); Hemoglobin 10.1 g/dl (14.0-18.0); Mean Corpuscular Hgb Conc 32.7 g/dL (32.0-36.0); Mean Platelet Volume 10.2 fL (9.4-12.4); Platelet Count 184 K/uL (130-400); RDW Coefficient of Variation 12.7 % (11.5-14.5); RDW Standard Deviation 48.1 fL (36.4-46.3); Red Blood Count 2.97 M/uL (4.70-6.10); White Blood Count 9.82 K/ul (4.8-10.8)
[2024-04-26 05:22] LABS: Albumin Level 3.5 gm/dl (3.4-5.0); BUN Creatinine Ratio 19.6 (10-20); Bilirubin Direct 0.1 mg/dl (0-0.2); Bilirubin,Total 0.7 mg/dl (0.2-1.0); Calcium 9.2 mg/dl (8.6-10.3); Creatinine Clr Calc Pharmacy 13.2 ml/min; Magnesium 2.5 mg/dl (1.7-2.4); Phosphorus 3.4 mg/dl (2.5-4.9); Total Protein 6.1 gm/dl (6.0-8.3); Troponin I High Sensitivity 25.4 pg/ml (0-20)
[2024-04-26] MEDS: PLASMA-LYTE A 1,000 ML IV SCH (07:36)
--- NOTE | 2024-04-26 07:37 | Nephrology Consultation ---
Date of Consultation April 26, 2024 Assessment & Plan (1) Hyperkalemia: critical/life-threatening hyperkalemia improving w/ intensive medical management. p/w K 7.2 > 6 most recently. -exchanged K rich plasmalyte for NS same rate; already w/ mild hyperchloremia but this is more accceptable than prolonged critical K elevation -continue lokelma tid -continue cardiac monitoring -dialysis diet ok for now (2) Acute renal failure: nonoliguric presume stage 3 AMBROSIO, improving nicely w/ hydration. no obstruction or acute renal process on imaging. urine sediment bland; urine relatively unconcentrated for pt w/ severe prerenal process but so far he is responding as though prerenal; that said recent antibiotics and infection may play a role not only in diarrhea but in renal dysfunction as well; would need more information ideally on abtx, recent infection. Presented w/ creatinine 6.8, peak 7.0; down to 5.2 w/in 12 hrs and currently at 4.8 -continue NS as below -continue to hold lasix, lisinopril -no indication currently for urgent dialysis -ok to d/c howe -OK to continue q4h BMP for now > when K 5.5 or less can make this q12h and lower lokelma dose to daily ->>prior to admission notes/records from [facility] needed and NEO order placed: >last clinic note just prior to admission >recent clinic note over a week back where decision was made to give abtx >need to know what antibiotic he was recently given >biopsy result from R posterior thigh from a few years back if available -most recent 3 BMP or CMP on file Care coordinated w/ Dr Glover regarding IVF, K management plan, howe removal; we are in agreement. History of Present Illness Reason for Consultation: acute renal failure Requesting Physician: Dr White Attending Physician: Jimmy Weston MD History of Present Illness 78 y/o M whom I'm asked to see for AMBROSIO was admitted last evening after presenting w/ c/o hypotension, presyncopal sx, diarrhea, BL leg weakness and a fall and found to have creatinine 6.8 and potassium 7.2. PMH includes CAD, h/o AAA repair, COPD, HTN. HL. Also w/ 2-3 year hx of lesion on R posterior thigh s/p remote biopsy and w/ recent infection a few weeks ago and course of abtx for this. No prior h/o kidney issues. He does not know what abtc he took but took for infection which he believes was fungal; he finished abtx about 4 nights ago. He reports 4-5 episodes of watery nonbloody diarrhea x 3 days prior to admission. also endorses decreased po intake for 48 hrs prior to admission; normally w/ good appetite. no chest or abdominal pain, no dypsnea. no worsening cough, no edema; no new/worrisome voiding issues. feels thigh infection cleared. He had calcium and insulin in the ER where his initial SBP were in high 90s. He was admitted to ICU for closer cardiac monitoring and started on bicarb gtt, tid lokelma. changed over to plasmalyte early this AM. This AM creatinine is 5.2 and 6. He made 1.8 L urine overnight. Currently on 4L NC, increased from 2L at admission. Allergies Allergy/AdvReac Type Severity Reaction Status Date / Time Penicillins Allergy Unknown PER RECORD Verified 02/10/22 07:41 Home Medications Medication Instructions Recorded Confirmed Type albuterol sulfate 90 mcg/actuation 2 puff inhalation QID PRN 08/20/21 12/11/21 History aerosol inhaler Shortness Of Breath aspirin 81 mg chewable tablet 81 mg PO DAILY 08/20/21 12/11/21 History atorvastatin 10 mg tablet 10 mg PO DAILY 08/20/21 12/11/21 History fluticasone 250 mcg-salmeterol 50 1 inh inhalation BID 08/20/21 12/11/21 History mcg/dose blistr powdr for inhalation (Wixela Inhub) folic acid 1 mg tablet 1 mg PO DAILY 08/20/21 12/11/21 History furosemide 40 mg tablet 40 mg PO BID 08/20/21 12/11/21 History isosorbide mononitrate 30 mg 30 mg PO DAILY 08/20/21 12/11/21 History tablet,extended release 24 hr lisinopril 20 mg tablet 20 mg PO DAILY 08/20/21 12/11/21 History meclizine 12.5 mg tablet 12.5 mg PO TID 08/20/21 12/11/21 History metoprolol tartrate 50 mg tablet 50 mg PO BID 08/20/21 12/11/21 History nitroglycerin 0.4 mg sublingual 0.4 mg sublingual QID PRN Chest 08/20/21 12/11/21 History tablet Pain Patient History Medical History Chronic obstructive pulmonary disease inhaler daily/prn CAD (coronary artery disease) Hearing deficit Acid reflux Vertigo Hyperlipidemia Hypertension Surgical History History of cataract surgery History of appendectomy History of abdominal aortic aneurysm (AAA) repair (~03/2016) percurtaneous endovascular repair--Dr. Starks @ [facility] Family History Other Family history unobtainable Social History Smoking Status: Former smoker Tobacco Type: Cigarettes Smoking End Date: 2019; Hx Alcohol Use: No Hx Substance Use: No Preferred Language: Korean Communication Ability: Unable Chief Clerk Shelter Required: No Beliefs That Will Affect Care: None Current Living Situation: Legal Guardian Current Living Situation Comment: Inmate - from correctional facility. Feels Safe at Home: Yes Safety Concerns: Feels Safe At This Time Assistive Devices: None Review of Systems 2 Review of Systems: All systems reviewed & are unremarkable except as noted in HPI & below Physical Exam 2 Constitutional: well developed, well nourished and cooperative; no acute distress Eyes: EOM intact bilaterally ENMT: Mouth: + dry oral mucous membranes Respiratory: normal respiratory effort Auscultation: + diminished lung sounds and + rhonchi (a few initially) Cardiovascular: RRR, no murmur, no edema Gastrointestinal (Abdomen): Inspection/Auscultation: normal bowel sounds P ercussion/Palpation: abdomen soft; abdomen nontender Musculoskeletal: Extremities: strength 5/5 throughout Skin: no rashes, warm and dry + lesion (half dollar sized purple posterior R thigh w/ sinus tract, scant drainage) Neurologic: dubon, fluent speech, no tremor Psychiatric: Orientation: alert and oriented x 3 Speech: normal rate/rhythm/volume of speech Results & Data Vital Signs (Past 12 Hours) Vital Signs Pulse Pulse Resp BP BP Pulse Ox O2 Del Method 04/26/24 07:12 79 19 94 Nasal Cannula 04/26/24 06:01 78 20 110/52 L 94 04/26/24 05:00 80 24 96/63 L 90 04/26/24 04:27 76 17 117/71 94 04/26/24 03:01 76 20 103/70 94 04/26/24 02:00 75 20 102/71 95 04/26/24 01:58 87 18 94 Nasal Cannula 04/26/24 01:00 81 20 110/74 95 04/26/24 00:01 74 19 103/56 L 94 Room Air 04/26/24 00:00 76 04/25/24 23:00 91 H 20 106/63 98 Room Air 04/25/24 22:00 113/73 04/25/24 21:57 94 H 34 H 98 04/25/24 21:33 90 15 97 04/25/24 21:12 90 20 100 04/25/24 21:10 89 18 97 Nasal Cannula 04/25/24 21:00 110/73 04/25/24 20:57 86 17 98 04/25/24 20:33 88 19 98 04/25/24 20:13 104/64 04/25/24 20:13 104/64 04/25/24 20:12 92 H 24 78 L 04/25/24 20:07 100 H 04/25/24 20:07 Nasal Cannula 04/25/24 20:03 100 H 17 04/25/24 19:47 95 H 25 H 113/71 99 Nasal Cannula 04/25/24 19:40 113/71 O2 Flow Rate 04/26/24 07:12 4 04/26/24 06:01 04/26/24 05:00 04/26/24 04:27 04/26/24 03:01 04/26/24 02:00 04/26/24 01:58 4 04/26/24 01:00 04/26/24 00:01 04/26/24 00:00 04/25/24 23:00 04/25/24 22:00 04/25/24 21:57 04/25/24 21:33 04/25/24 21:12 04/25/24 21:10 4 04/25/24 21:00 04/25/24 20:57 04/25/24 20:33 04/25/24 20:13 04/25/24 20:13 04/25/24 20:12 04/25/24 20:07 04/25/24 20:07 2 04/25/24 20:03 04/25/24 19:47 2 04/25/24 19:40 Laboratory Results 04/26/24 04:38 04/26/24 04:[address] a/p 1. No CT evidence of an acute abdominal or pelvic abnormality. 2. No hydronephrosis or obstructing calculus. 3. Postsurgical change of the aorta with graft in place. cxr clear both CT/CXR images personally reviewed TTE EF wnl; else compromised/limited study (2) Acute renal failure Acute renal failure type: unspecified Qualified Code(s): N17.9 - Acute kidney failure, unspecified
[2024-04-26] MEDS: SODIUM CHLORIDE 0.9% 1,000 ML IV STA (08:20)
[2024-04-26] MEDS: FLUTICASONE/VILANTEROL 100/25MCG 14 PUFFS/INHALER INH SCH (08:21)
[2024-04-26 08:32] LABS: BUN Creatinine Ratio 19.5 (10-20); Calcium 9.4 mg/dl (8.6-10.3); Creatinine Clr Calc Pharmacy 14.4 ml/min
--- NOTE | 2024-04-26 08:43 | Hospitalist Progress Note ---
Date of Service April 26, 2024 Assessment & Plan (1) Acute renal failure (ARF): Plan: Kidney function is improving, creatinine improved to 5, at baseline and I do not see any record of him having any underlying kidney disease, this is mostly prerenal secondary to intravascular volume depletion as result of diarrheal disease. Since admission patient did not have any diarrhea or any other symptom or sign suggestive of GI infection. CT of the abdomen was unremarkable for any hydronephrosis. Continue with IV fluid at discretion of nephrology, monitor kidney function, potassium has already improved to 6. (2) Acute hyperkalemia: Plan: Improving, potassium has improved to 6, continue with IV fluid, no EKG abnormalities overnight, follow with recommendation by nephrology no hydronephro sis on CT. (3) Hypermagnesemia: Plan: Improving, initially was 2.6 and now it is 2.5, no concern (4) Acute diarrhea: Plan: Since admission patient did not have any diarrhea, I advised patient to start p.o. intake, asked nursing staff to collect sample if needed to be sent for stool culture and C. difficile. (5) Chronic obstructive pulmonary disease: Plan: Patient has chronic COPD and clinically stable, continue with home medications of Breo Ellipta and as needed nebulizer as needed. Patient is on room air with no issue. (6) CAD (coronary artery disease): Plan: Patient is clinically stable, does not complain of any chest pain. Avoid nephrotoxins at this point, resume home medications when stable (7) Hypertension: Plan: Patient is clinically stable, blood pressure is stable, hold any antihypertensive at this point. Resume if needed. (8) History of abdominal aortic aneurysm (AAA) repair: Plan: Clinically stable. Plan Continue monitoring kidney function and serum potassium level on IV fluid per nephrology recommendations, PT and OT upon further stabilization likely tomorrow, I ordered urine tox screen to be added to previous urinalysis. Admission and Anticipated Discharge Date Admission Date: April 25, 2024 Subjective patient is an 78-year-old inmate who was brought to the hospital from correctional facility after several days of diarrhea with generalized weakness and fall, patient was found to be in severe acute renal failure with significant hyperkalemia, he was admitted to ICU and his hyperkalemia was managed with combination of insulin and dextrose, his initial potassium of 6.7 improved to 6, his creatinine was improved from 6-5, patient was seen by nephrology and was admitted to ICU, he had minimal troponin elevation which was otherwise attributed to worsening kidney function. Patient was managed with IV fluid only managed by nephrology. This appeared to be mostly prerenal secondary to volume depletion considering the presence of hyaline cast and very concentrated urine o n admission. He does have Rodrigues catheter at this point which is more of measuring accurate output. Upon discharge patient would need PT and OT evaluation. Patient was seen and examined and case was discussed with nursing staff Physical Exam Physical Exam: VITALS: Reviewed. WEIGHT/BMI reviewed. GEN: Healthy appearing, well-developed, NAD. PSYCH: Good Judgment. AOx3. Normal memory, mood, and affect. HEENT -Head: NC/AT; -Eyes: PERRL, EOMI. No discharge or redn ess; -Ears: External ears are normal. Normal TMs. -Nose: Normal nares. -Mouth and throat: MMM. Normal gums, muc red, palate,. Good dentition. NECK: Supple, with no masses. CV: RRR, no m/r/g. LUNGS: CTAB, no w/r/c. ABD: Soft, NT/ND, NBS, no masses or organomegaly. : N/A SKIN: Warm, well perfused. No skin rashes or abnormal lesions. Results & Data Results & Data Vital Signs (Past 12 Hours) Vital Signs Pulse Pulse Resp BP Pulse Ox O2 Del Method O2 Flow Rate 04/26/24 07:12 79 19 94 Nasal Cannula 4 04/26/24 06:01 78 20 110/52 L 94 04/26/24 05:00 80 24 96/63 L 90 04/26/24 04:27 76 17 117/71 94 04/26/24 03:01 76 20 103/70 94 04/26/24 02:00 75 20 102/71 95 04/26/24 01:58 87 18 94 Nasal Cannula 4 04/26/24 01:00 81 20 110/74 95 04/26/24 00:01 74 19 103/56 L 94 Room Air 04/26/24 00:00 76 04/25/24 23:00 91 H 20 106/63 98 Room Air 04/25/24 22:00 113/73 04/25/24 21:57 94 H 34 H 98 04/25/24 21:33 90 15 97 04/25/24 21:12 90 20 100 04/25/24 21:10 89 18 97 Nasal Cannula 4 04/25/24 21:00 110/73 04/25/24 20:57 86 17 98 Laboratory Results Laboratory Results - last 24 hr 04/25/24 04/25/24 04/25/24 16:25 16:33 18:14 WBC 12.00 H RBC 3.41 L Hgb 11.9 L Hct 36.4 L MCV 106.7 H MCH 34.9 H MCHC 32.7 RDW Std Deviation 50.7 H RDW Coeff of Corey 12.8 Plt Count 255 MPV 10.7 Immature Gran % (Auto) 0.4 Neut % (Auto) 84.0 Lymph % (Auto) 6.6 [place] % (Auto) 8.4 Eos % (Auto) 0.3 Baso % (Auto) 0.3 Neut # (Auto) 10.08 H Lymph # (Auto) 0.79 L [place] # (Auto) 1.01 H Eos # (Auto) 0.04 Baso # (Auto) 0.03 Immature Gran # (Auto) 0.05 PT 11.8 INR 1.1 APTT 26 PTT Ratio 1.0 VBG pH VBG pCO2 VBG pO2 VBG HCO3 VBG O2 Saturation VBG Base Excess Sodium 134 L Potassium 7.2 H* Chloride 103 Carbon Dioxide 20 L Anion Gap 11 BUN 118 H Creatinine 6.84 H* Est Cr Clr Drug Dosing Not Reportable eGFR 7.57 BUN/Creatinine Ratio 17.3 Glucose 93 POC Glucose Lactate Calcium 9.8 Phosphorus Magnesium 3.1 H Total Bilirubin 0.5 Direct Bilirubin AST 29 ALT 15 Alkaline Phosphatase 65 Troponin I High Sens 23.1 H Total Protein 7.8 Albumin 4.6 Globulin 3.2 Albumin/Globulin Ratio 1.4 Procalcitonin Urine Color Yellow Urine Appearance Clear Urine pH 5.0 Ur Specific [place] 1.015 Urine Protein Trace H Urine Glucose (UA) Negative Urine Ketones Negative Urine Blood Negative Urine Nitrite Negative Urine Bilirubin Negative Urine Urobilinogen Negative Ur Leukocyte Esterase Negative Urine WBC (Auto) 0-5 Urine RBC (Auto) 0-2 U Hyaline Cast (Auto) 6-10 H U Epithel Cells (Auto) 0-2 Urine Bacteria (Auto) None Seen Hyaline Casts Present A Urine Sperm Present A Nasal Screen MRSA (PCR) Adenovirus (PCR) Not Detected B. pertussis DNA (PCR) Not Detected B.parapertussis DNA PCR Not Detected C. pneumoniae DNA (PCR) Not Detected Coronavirus OC43 (PCR) Not Detected Coronavirus HKU1 (PCR) Not Detected Coronavirus 229E (PCR) Not Detected SARS-CoV-2 (PCR) Not Detected Coronavirus NL63 (PCR) Not Detected Human Metapneumovir PCR Not Detected Influenza Type A (PCR) Not Detected Influenza Type B (PCR) Not Detected M. pneumoniae (PCR) Not Detected Parainfluenza 1 (PCR) Not Detected Parainfluenza 2 (PCR) Not Detected Parainfluenza 3 (PCR) Not Detected Parainfluenza 4 (PCR) Not Detected RSV (PCR) Not Detected Entero/Rhino (PCR) Not Detected 04/25/24 04/25/24 04/25/24 19:11 19:43 20:16 WBC RBC Hgb Hct MCV MCH MCHC RDW Std Deviation RDW Coeff of [place] Plt Count MPV Immature Gran % (Auto) Neut % (Auto) Lymph % (Auto) [place] % (Auto) Eos % (Auto) Baso % (Auto) Neut # (Auto) Lymph # (Auto) [place] # (Auto) Eos # (Auto) Baso # (Auto) Immature Gran # (Auto) PT INR APTT PTT Ratio VBG pH 7.15 L VBG pCO2 51 H VBG pO2 31 VBG HCO3 18 VBG O2 Saturation < 60.0 VBG Base Excess -11.2 Sodium 134 L Potassium 6.7 H* Chloride 107 Carbon Dioxide 18 L Anion Gap 9 BUN 128 H Creatinine 7.02 H* Est Cr Clr Drug Dosing 9.9 eGFR 7.34 BUN/Creatinine Ratio 18.2 Glucose 76 POC Glucose 187 H Lactate 1.6 Calcium 9.6 Phosphorus Magnesium Total Bilirubin Direct Bilirubin AST ALT Alkaline Phosphatase Troponin I High Sens 29.1 H Total Protein Albumin Globulin Albumin/Globulin Ratio Procalcitonin Urine Color Urine Appearance Urine pH Ur Specific [place] Urine Protein Urine Glucose (UA) Urine Ketones Urine Blood Urine Nitrite Urine Bilirubin Urine Urobilinogen Ur Leukocyte Esterase Urine WBC (Auto) Urine RBC (Auto) U Hyaline Cast (Auto) U Epithel Cells (Auto) Urine Bacteria (Auto) Hyaline Casts Urine Sperm Nasal Screen MRSA (PCR) Adenovirus (PCR) B. pertussis DNA (PCR) B.parapertussis DNA PCR C. pneumoniae DNA (PCR) Coronavirus OC43 (PCR) Coronavirus HKU1 (PCR) Coronavirus 229E (PCR) SARS-CoV-2 (PCR) Coronavirus NL63 (PCR) Human Metapneumovir PCR Influenza Type A (PCR) Influenza Type B (PCR) M. pneumoniae (PCR) Parainfluenza 1 (PCR) Parainfluenza 2 (PCR) Parainfluenza 3 (PCR) Parainfluenza 4 (PCR) RSV (PCR) Entero/Rhino (PCR) 04/25/24 04/25/24 04/25/24 20:22 20:32 20:33 WBC RBC Hgb Hct MCV MCH MCHC RDW Std Deviation RDW Coeff of [place] Plt Count MPV Immature Gran % (Auto) Neut % (Auto) Lymph % (Auto) [place] % (Auto) Eos % (Auto) Baso % (Auto) Neut # (Auto) Lymph # (Auto) [place] # (Auto) Eos # (Auto) Baso # (Auto) Immature Gran # (Auto) PT INR APTT PTT Ratio VBG pH VBG pCO2 VBG pO2 VBG HCO3 VBG O2 Saturation VBG Base Excess Sodium Potassium Chloride Carbon Dioxide Anion Gap BUN Creatinine Est Cr Clr Drug Dosing eGFR BUN/Creatinine Ratio Glucose POC Glucose 57 L* 56 L* Lactate Calcium Phosphorus Magnesium Total Bilirubin Direct Bilirubin AST ALT Alkaline Phosphatase Troponin I High Sens Total Protein Albumin Globulin Albumin/Globulin Ratio Procalcitonin Urine Color Urine Appearance Urine pH Ur Specific [place] Urine Protein Urine Glucose (UA) Urine Ketones Urine Blood Urine Nitrite Urine Bilirubin Urine Urobilinogen Ur Leukocyte Esterase Urine WBC (Auto) Urine RBC (Auto) U Hyaline Cast (Auto) U Epithel Cells (Auto) Urine Bacteria (Auto) Hyaline Casts Urine Sperm Nasal Screen MRSA (PCR) Cancelled Adenovirus (PCR) B. pertussis DNA (PCR) B.parapertussis DNA PCR C. pneumoniae DNA (PCR) Coronavirus OC43 (PCR) Coronavirus HKU1 (PCR) Coronavirus 229E (PCR) SARS-CoV-2 (PCR) Coronavirus NL63 (PCR) Human Metapneumovir PCR Influenza Type A (PCR) Influenza Type B (PCR) M. pneumoniae (PCR) Parainfluenza 1 (PCR) Parainfluenza 2 (PCR) Parainfluenza 3 (PCR) Parainfluenza 4 (PCR) RSV (PCR) Entero/Rhino (PCR) 04/25/24 04/25/24 04/26/24 21:00 23:18 01:26 WBC RBC Hgb Hct MCV MCH MCHC RDW Std Deviation RDW Coeff of [place]y Plt Count MPV Immature Gran % (Auto) Neut % (Auto) Lymph % (Auto) [place] % (Auto) Eos % (Auto) Baso % (Auto) Neut # (Auto) Lymph # (Auto) [place] # (Auto) Eos # (Auto) Baso # (Auto) Immature Gran # (Auto) PT INR APTT PTT Ratio VBG pH 7.27 L VBG pCO2 44 VBG pO2 32 VBG HCO3 20 VBG O2 Saturation < 60.0 VBG Base Excess -6.6 Sodium 136 Potassium 6.7 H* Chloride 108 H Carbon Dioxide 21 Anion Gap 7 BUN 115 H Creatinine 6.10 H* D Est Cr Clr Drug Dosing 11.3 eGFR 8.69 BUN/Creatinine Ratio 18.9 Glucose 122 H POC Glucose 135 H 215 H Lactate Calcium 8.8 Phosphorus Magnesium 2.6 H Total Bilirubin Direct Bilirubin AST ALT Alkaline Phosphatase Troponin I High Sens Total Protein Albumin Globulin Albumin/Globulin Ratio Procalcitonin Urine Color Urine Appearance Urine pH Ur Specific [place] Urine Protein Urine Glucose (UA) Urine Ketones Urine Blood Urine Nitrite Urine Bilirubin Urine Urobilinogen Ur Leukocyte Esterase Urine WBC (Auto) Urine RBC (Auto) U Hyaline Cast (Auto) U Epithel Cells (Auto) Urine Bacteria (Auto) Hyaline Casts Urine Sperm Nasal Screen MRSA (PCR) Adenovirus (PCR) B. pertussis DNA (PCR) B.parapertussis DNA PCR C. pneumoniae DNA (PCR) Coronavirus OC43 (PCR) Coronavirus HKU1 (PCR) Coronavirus 229E (PCR) SARS-CoV-2 (PCR) Coronavirus NL63 (PCR) Human Metapneumovir PCR Influenza Type A (PCR) Influenza Type B (PCR) M. pneumoniae (PCR) Parainfluenza 1 (PCR) Parainfluenza 2 (PCR) Parainfluenza 3 (PCR) Parainfluenza 4 (PCR) RSV (PCR) Entero/Rhino (PCR) 04/26/24 04/26/24 04/26/24 03:37 04:00 04:38 WBC 9.82 RBC 2.97 L Hgb 10.1 L Hct 30.9 L MCV 104.0 H MCH 34.0 MCHC 32.7 RDW Std Deviation 48.1 H RDW Coeff of Corey 12.7 Plt Count 184 MPV 10.2 Immature Gran % (Auto) Neut % (Auto) Lymph % (Auto) [place] % (Auto) Eos % (Auto) Baso % (Auto) Neut # (Auto) Lymph # (Auto) [place] # (Auto) Eos # (Auto) Baso # (Auto) Immature Gran # (Auto) PT INR APTT PTT Ratio VBG pH 7.36 VBG pCO2 41 VBG pO2 32 VBG HCO3 23 VBG O2 Saturation < 60.0 VBG Base Excess -2.2 Sodium 137 Potassium 6.0 H Chloride 108 H Carbon Dioxide 23 Anion Gap 6 BUN 102 H Creatinine 5.20 H* D Est Cr Clr Drug Dosing 13.2 eGFR 10.52 BUN/Creatinine Ratio 19.6 Glucose 106 H POC Glucose 83 Lactate Calcium 9.2 Phosphorus 3.4 Magnesium 2.5 H Total Bilirubin 0.7 Direct Bilirubin 0.1 AST 31 ALT 13 Alkaline Phosphatase 50 Troponin I High Sens 25.4 H Total Protein 6.1 D Albumin 3.5 Globulin Albumin/Globulin Ratio Procalcitonin 0.21 Urine Color Urine Appearance Urine pH Ur Specific [place] Urine Protein Urine Glucose (UA) Urine Ketones Urine Blood Urine Nitrite Urine Bilirubin Urine Urobilinogen Ur Leukocyte Esterase Urine WBC (Auto) Urine RBC (Auto) U Hyaline Cast (Auto) U Epithel Cells (Auto) Urine Bacteria (Auto) Hyaline Casts Urine Sperm Nasal Screen MRSA (PCR) Negative Adenovirus (PCR) B. pertussis DNA (PCR) B.parapertussis DNA PCR C. pneumoniae DNA (PCR) Coronavirus OC43 (PCR) Coronavirus HKU1 (PCR) Coronavirus 229E (PCR) SARS-CoV-2 (PCR) Coronavirus NL63 (PCR) Human Metapneumovir PCR Influenza Type A (PCR) Influenza Type B (PCR) M. pneumoniae (PCR) Parainfluenza 1 (PCR) Parainfluenza 2 (PCR) Parainfluenza 3 (PCR) Parainfluenza 4 (PCR) RSV (PCR) Entero/Rhino (PCR) 04/26/24 04/26/24 07:36 07:59 WBC RBC Hgb Hct MCV MCH MCHC RDW Std Deviation RDW Coeff of Corey Plt Count MPV Immature Gran % (Auto) Neut % (Auto) Lymph % (Auto) [place] % (Auto) Eos % (Auto) Baso % (Auto) Neut # (Auto) Lymph # (Auto) [place] # (Auto) Eos # (Auto) Baso # (Auto) Immature Gran # (Auto) PT INR APTT PTT Ratio VBG pH VBG pCO2 VBG pO2 VBG HCO3 VBG O2 Saturation VBG Base Excess Sodium 138 Potassium 6.0 H Chloride 107 Carbon Dioxide 25 Anion Gap 6 BUN 94 H Creatinine 4.82 H* D Est Cr Clr Drug Dosing 14.4 eGFR 11.53 BUN/Creatinine Ratio 19.5 Glucose 137 H POC Glucose 121 H Lactate Calcium 9.4 Phosphorus Magnesium Total Bilirubin Direct Bilirubin AST ALT Alkaline Phosphatase Troponin I High Sens Total Protein Albumin Globulin Albumin/Globulin Ratio Procalcitonin Urine Color Urine Appearance Urine pH Ur Specific [place] Urine Protein Urine Glucose (UA) Urine Ketones Urine Blood Urine Nitrite Urine Bilirubin Urine Urobilinogen Ur Leukocyte Esterase Urine WBC (Auto) Urine RBC (Auto) U Hyaline Cast (Auto) U Epithel Cells (Auto) Urine Bacteria (Auto) Hyaline Casts Urine Sperm Nasal Screen MRSA (PCR) Adenovirus (PCR) B. pertussis DNA (PCR) B.parapertussis DNA PCR C. pneumoniae DNA (PCR) Coronavirus OC43 (PCR) Coronavirus HKU1 (PCR) Coronavirus 229E (PCR) SARS-CoV-2 (PCR) Coronavirus NL63 (PCR) Human Metapneumovir PCR Influenza Type A (PCR) Influenza Type B (PCR) M. pneumoniae (PCR) Parainfluenza 1 (PCR) Parainfluenza 2 (PCR) Parainfluenza 3 (PCR) Parainfluenza 4 (PCR) RSV (PCR) Entero/Rhino (PCR) Diagnostic Findings Chest X-Ray 04/25/24 17:30 EXAM: X-ray chest one-view portable CLINICAL HISTORY: Short of breath PRIORS: 04/21/2016 TECHNIQUE: Portable upright AP view chest FINDINGS: The chest is well-expanded. No airspace consolidation, effusion or congestive changes. Heart size is top normal. No pneumothorax. Trachea is patent. Osseous structures demonstrate no acute abnormality. No radiopaque foreign body. IMPRESSION: No plain film evidence of an acute cardiopulmonary process. Electronically signed by Emani Belle 04-25-2024 6:31 PM Abdomen/Pelvis CT 04/25/24 17:35 EXAMINATION: Abdomen and pelvis CT without CLINICAL HISTORY: Acute renal failure PRIORS: 06/03/2016 CT abdomen TECHNIQUE: Contiguous axial images were obtained through the abdomen and pelvis without the use of intravenous contrast. Sagittal and coronal reformations are supplied. FINDINGS: Pulmonary emphysema present at the lung bases. Motion artifact degrades image quality. Evaluation of solid organs is limited without the use of intravenous contrast. Allowing for this, the liver, gallbladder, pancreas, spleen, stomach, adrenals, and IVC are normal in morphology. An aortic stent is present with no surrounding fluid and not further evaluated. Allowing for noncontrast enhanced technique, kidneys appear atrophic. No hydronephrosis. Bilateral perinephric stranding present suggesting underlying medical renal disease. A left renal low-attenuation lesion present projecting off of the lower pole measuring fluid attenuation and 3.6 cm, likely representing a simple cyst. No retroperitoneal adenopathy or hematoma. No ascites. Small umbilical hernia containing fat. Urinary bladder distends normally. Small left inguinal hernia present containing fat. Prostate normal in size. A moderate amount of formed stool present in the colon. No dilated loops of bowel. No inflammatory change in the right lower quadrant. In bone windows, moderate osseous demineralization and degenerative change throughout the lumbar spine. No high-grade compression fracture. IMPRESSION: 1. No CT evidence of an acute abdominal or pelvic abnormality. 2. No hydronephrosis or obstructing calculus. 3. Postsurgical change of the aorta with graft in place. Electronically signed by Emani Belle 04-25-2024 6:07 PM (5) Chronic obstructive pulmonary disease COPD type: unspecified COPD Qualified Code(s): J44.9 - Chronic obstructive pulmonary disease, unspecified (6) CAD (coronary artery disease) Coronary Disease-Associated Artery/Lesion type: [place] artery [place] vs. transplanted heart: [place] heart Associated angina: without angina Qualified Code(s): I25.10 - Atherosclerotic heart disease of [place] coronary artery without angina pectoris (7) Hypertension Hypertension type: primary hypertension Qualified Code(s): I10 - Essential (primary) hypertension
--- NOTE | 2024-04-26 09:43 | Critical Care Progress Note ---
Date of Service April 26, 2024 Assessment & Plan (1) Acute renal failure (ARF): Plan: Reason Critically Ill: 78-year-old male with history of COPD, CAD, HTN, HLD, AAA, presents to the ICU for management of acute renal failure with hyperkalemia and metabolic acidosis after 3 days of diarrhea in which the patient presents hypovolemic. Neuro - CAM ICU: Negative Cardiac - Diastolic heart failureappears stable as of now. Patient currently dehydrated. Continue with fluid resuscitation. Hold Lasix in the setting of acute renal failure. Monitor strict I's and O's, daily weights. Follow-up TTE AAAstatus post graft. No issue at this time HTNhold lisinopril in the setting of renal failure. Continue Metoprolol CADcontinue ASA Respiratory - COPDstable at this time although patient reports using rescue inhaler multiple times per day despite use of LABA -Currently maintaining oxygen saturations on nasal cannula, wean as tolerated for SaO2 90% - Continue with scheduled nebs for now -Chest x-ray unremarkable -Continuous monitoring pulse ox GI - N.p.o. for now RENAL/LYTES - Acute renal failure/hyperkalemia/metabolic acidosisrenal function improving with crystalloids. Appreciate nephro input. - Foleystrict I's and O's ENDO - No history of diabetes or thyroid disease. ICU hyperglycemic protocol HEME - H&H stable, monitor routine CBC ID - Currently afebrile. Mild leukocytosis. Procalcitonin negative - Stool bio fire negative -Hold on antibiotics for now and trend fever curve LINES/IV ACCESS - Peripheral IVs DVT PROPHYLAXIS - Heparin BID Stable for downgrade to pcu (2) Acute hyperkalemia: (3) Metabolic acidosis: (4) Acute diarrhea: (5) CAD (coronary artery disease): (6) Hypertension: (7) Hyperlipidemia: (8) Chronic obstructive pulmonary disease: Admission and Anticipated Discharge Date Admission Date: April 25, 2024 Subjective Hemodynamically stable. No major complaints. Review of Systems Review of Systems: All systems reviewed & are unremarkable except as noted in HPI & below Physical Exam Constitutional: + obese, cooperative and comfortable Eyes: PERRL, conjunctivae normal, anicteric sclerae ENMT: external ear and nose normal, oropharynx normal Neck: trachea midline, no thyromegaly Respiratory: Diminished breath sounds bilaterally in all lung [place], no wheezes or crackles auscultated. No labored breathing or tachypnea. Symmetrical chest wall movement Cardiovascular: Rate/Rhythm: regular rate and regular rhythm Heart Sounds: normal S1 and normal S2; no murmur Extremities: no edema Gastrointestinal (Abdomen): normal bowel sounds, soft, nontender, no hepatosplenomegaly Musculoskeletal: no cyanosis or clubbing, extremities motor strength 5/5 Skin: no rashes, warm and dry Neurologic: PERRL, EOMI, accommodation nl, no face palsy, no dysarthria Psychiatric: A+Ox3, euthymic affect Results & Data Results & Data Vital Signs (Past 12 Hours) Vital Signs Temp Pulse Pulse Resp BP Pulse Ox O2 Del Method 04/26/24 08:49 Room Air 04/26/24 08:44 36.9 C 04/26/24 08:25 126/66 04/26/24 08:24 90 28 H 92 Room Air 04/26/24 08:09 89 27 H 93 04/26/24 08:01 104/68 04/26/24 07:57 82 12 92 04/26/24 07:12 79 19 94 Nasal Cannula 04/26/24 07:03 75 22 94 04/26/24 07:00 110/63 04/26/24 06:51 75 30 H 94 04/26/24 06:18 77 21 95 04/26/24 06:01 78 20 110/52 L 94 04/26/24 05:00 80 24 96/63 L 90 04/26/24 04:27 76 17 117/71 94 04/26/24 03:01 76 20 103/70 94 04/26/24 02:00 75 20 102/71 95 04/26/24 01:58 87 18 94 Nasal Cannula 04/26/24 01:00 81 20 110/74 95 04/26/24 00:01 74 19 103/56 L 94 Room Air 04/26/24 00:00 76 04/25/24 23:00 91 H 20 106/63 98 Room Air 04/25/24 22:00 113/73 04/25/24 21:57 94 H 34 H 98 O2 Flow Rate 04/26/24 08:49 04/26/24 08:44 04/26/24 08:25 04/26/24 08:24 04/26/24 08:09 04/26/24 08:01 04/26/24 07:57 04/26/24 07:12 4 04/26/24 07:03 04/26/24 07:00 04/26/24 06:51 04/26/24 06:18 04/26/24 06:01 04/26/24 05:00 04/26/24 04:27 04/26/24 03:01 04/26/24 02:00 04/26/24 01:58 4 04/26/24 01:00 04/26/24 00:01 04/26/24 00:00 04/25/24 23:00 04/25/24 22:00 04/25/24 21:57 Coding Level of Care Code 91461 SUB INP/OBS CARE 3/50MIN Diagnoses Acute renal failure (ARF) N17.9 Acute hyperkalemia E87.5 Metabolic acidosis E87.20 Acute diarrhea R19.7 Coronary artery disease involving [place] coronary artery of [place] heart without angina pectoris I25.10 Coronary Disease-Associated Artery/Lesion type: [place] artery [place] vs. transplanted heart: [place] heart Associated angina: without angina Primary hypertension I10 Hypertension type: primary hypertension Hyperlipidemia E78.5 Chronic obstructive pulmonary disease, unspecified COPD type J44.9 COPD type: unspecified COPD (5) CAD (coronary artery disease) Coronary Disease-Associated Artery/Lesion type: [place] artery [place] vs. transplanted heart: [place] heart Associated angina: without angina Qualified Code(s): I25.10 - Atherosclerotic heart disease of [place] coronary artery with out angina pectoris (6) Hypertension Hypertension type: primary hypertension Qualified Code(s): I10 - Essential (primary) hypertension (8) Chronic obstructive pulmonary disease COPD type: unspecified COPD Qualified Code(s): J44.9 - Chronic obstructive pulmonary disease, unspecified
--- NOTE | 2024-04-26 09:47 | Electrocardiogram Report ---
Test Reason : Blood Pressure : */* mmHG Vent. Rate : 102 BPM Atrial Rate : 76 BPM P-R Int : 176 ms QRS Dur : 90 ms QT Int : 362 ms P-R-T Axes : -29 -31 75 degrees QTcB Int : 471 ms Sinus rhythm Left axis deviation Low voltage QRS Abnormal ECG When compared with ECG of 21-Apr-2016 16:40, Vent. rate has increased by 38 bpm QRS axis Shifted left Confirmed by Edilberto Tran ([id number]) on 04/26/2024 9:46:59 AM Referred By: Confirmed By: Edilberto Tran
[2024-04-26 09:56] LABS: Amphetamines+Metham, Urine Neg (Neg); Barbiturates, Urine Neg (Neg); Benzodiazepine, Urine Neg (Neg); Cocaine, Urine Neg (Neg); Fentanyl, Urine Neg (Neg); MDMA (Ecstacy), Urine Neg (Neg); Marijuana, Urine Neg (Neg); Methadone, Urine Neg (Neg); Opiate, Urine Neg (Neg); Phencyclidine, Urine Neg (Neg)
[2024-04-26] MEDS: HEPARIN SOD 5,000 UNIT/0.5 ML VIAL SQ SCH (11:40)
[2024-04-26 12:21] LABS: Calcium 9.3 mg/dl (8.6-10.3); Potassium 5.7 mmol/L (3.5-5.1)
[2024-04-26 12:26] LABS: BUN Creatinine Ratio 20.5 (10-20)
[2024-04-27 05:55] LABS: Hematocrit (blood only) 31.6 % (42.0-52.0); Hemoglobin 10.5 g/dl (14.0-18.0); Mean Corpuscular Hemoglobin 35.1 pg (25.0-34.0); Mean Corpuscular Hgb Conc 33.2 g/dL (32.0-36.0); Mean Corpuscular Volume 105.7 fL (80.0-100.0); Mean Platelet Volume 10.8 fL (9.4-12.4); Platelet Count 160 K/uL (130-400); RDW Coefficient of Variation 12.8 % (11.5-14.5); RDW Standard Deviation 50.1 fL (36.4-46.3); Red Blood Count 2.99 M/uL (4.70-6.10)
[2024-04-27 06:12] LABS: BUN Creatinine Ratio 23.9 (10-20); Calcium 8.6 mg/dl (8.6-10.3); Creatinine Clr Calc Pharmacy 20.2 ml/min; Magnesium 2.3 mg/dl (1.7-2.4); Phosphorus 3.9 mg/dl (2.5-4.9); Potassium 5.4 mmol/L (3.5-5.1)
--- NOTE | 2024-04-27 09:23 | Hospitalist Progress Note ---
Date of Service April 27, 2024 Assessment & Plan (1) Acute renal failure (ARF): Plan: Patient is overall improving, creatinine has improved to creatinine of 3.4 potassium improved to 5.4, continue with IV fluid, recheck chemistry panel in the morning. CT of the abdomen was negative for any hydronephrosis or enteritis, patient did not report any diarrhea. Monitor for 1 more day. (2) Acute hyperkalemia: Plan: Improving, potassium has improved to 5.4. no EKG abnormalities overnight, follow with recommendation by nephrology no hydronephrosis on CT. (3) Hypermagnesemia: Plan: Improved, magnesium today was 2.3. (4) Acute diarrhea: Plan: Resolved. (5) Chronic obstructive pulmonary disease: Plan: Patient has chronic COPD and clinically stable, continue with home medications of Breo Ellipta and as needed nebulizer as needed. Patient is on room air with no issue. (6) CAD (coronary artery disease): Plan: Patient is clinically stable, does not complain of any chest pain. Avoid nephrotoxins at this point, resume home medications when stable (7) Hypertension: Plan: Patient is clinically stable, blood pressure is stable, hold any antihypertensive at this point. Resume if needed. (8) History of abdominal aortic aneurysm (AAA) repair: Plan: Clinically stable. Plan Continue IV fluid for 1 more day, if the renal function continues to improve tomorrow will discharge. Admission and Anticipated Discharge Date Admission Date: April 25, 2024 Subjective Patient is clinically stable, no diarrhea was reported, appetite is improving. Physical Exam Physical Exam: VITALS: Reviewed. WEIGHT/BMI reviewed. GEN: Healthy appearing, well-developed, NAD. CV: RRR, no m/r/g. LUNGS: CTAB, no w/r/c. ABD: Soft, NT/ND, NBS, no masses or organomegaly. Results & Data Results & Data Vital Signs (Past 12 Hours) Vital Signs Temp Pulse Pulse Resp BP BP Pulse Ox 04/27/24 08:20 36.6 C 70 20 121/70 98 04/26/24 23:30 71 04/26/24 21:24 77 18 114/70 94 O2 Del Method O2 Flow Rate 04/27/24 08:20 Nasal Cannula 2 04/26/24 23:30 04/26/24 21:24 Nasal Cannula 2 Diagnostic Findings Laboratory Results - last 24 hr 04/26/24 04/26/24 04/26/24 08:30 11:41 12:12 WBC RBC Hgb Hct MCV MCH MCHC RDW Std Deviation RDW Coeff of Corey Plt Count MPV Sodium 138 Potassium 5.7 H Chloride 109 H Carbon Dioxide 21 Anion Gap 8 BUN 89 H Creatinine 4.34 H D Est Cr Clr Drug Dosing 16.0 eGFR 13.07 BUN/Creatinine Ratio 20.5 H Glucose 138 H POC Glucose Calcium 9.3 Phosphorus Magnesium Stl C. cayetanensis PCR Cancelled Stool Rotavirus A PCR Cancelled Stl Adenov F PCR Cancelled Stool Astrovirus (PCR) Cancelled Stool Campylobacter PCR Cancelled Stl C. diff Tox B Gene Negative Cdiff Gene Stool Cryptosporidium PCR Cancelled Stl E.coli Shiga Tox PCR Cancelled Stool E coli O157 PCR Cancelled Stl Enterotoxigenic E PCR Cancelled Stool EPEC (PCR) Cancelled Stool EAEC (PCR) Cancelled Stl E. histolytica PCR Cancelled Stool Giardia Lamblia PCR Cancelled Stool Salmonella PCR Cancelled Stool Sapovirus (PCR) Cancelled Stl P. shigelloides PCR Cancelled Stl Shigella/EIEC PCR Cancelled St Y.enterocolitica PCR Cancelled Stool Vibrio (PCR) Cancelled Stl Vibrio cholerae PCR Cancelled Stl Norovirus GI/GII PCR Cancelled Urine Opiates Screen Neg Ur Methadone, Qual Neg Urine Fentanyl Screen Neg Urine Barbiturates Neg Ur Phencyclidine (PCP) Neg U Amphetamin/Meth Scrn Neg MDMA (Ecstasy) Screen Neg U Benzodiazepines Scrn Neg Ur Cocaine Metabolite Neg U Marijuana (THC) Screen Neg 04/26/24 04/27/24 04/27/24 21:10 02:12 05:37 WBC 7.30 RBC 2.99 L Hgb 10.5 L Hct 31.6 L MCV 105.7 H MCH 35.1 H MCHC 33.2 RDW Std Deviation 50.1 H RDW Coeff of Corey 12.8 Plt Count 160 MPV 10.8 Sodium 140 Potassium 5.4 H Chloride 112 H Carbon Dioxide 21 Anion Gap 7 BUN 82 H Creatinine 3.43 H D Est Cr Clr Drug Dosing 20.2 eGFR 17.34 BUN/Creatinine Ratio 23.9 H Glucose 113 H POC Glucose 117 H 114 H Calcium 8.6 Phosphorus 3.9 Magnesium 2.3 Stl C. cayetanensis PCR Stool Rotavirus A PCR Stl Adenov F 40/41 PCR Stool Astrovirus (PCR) Stool Campylobacter PCR Stl C. diff Tox B Gene Stool Cryptosporidium PCR Stl E.coli Shiga Tox PCR Stool E coli O157 PCR Stl Enterotoxigenic E PCR Stool EPEC (PCR) Stool EAEC (PCR) Stl E. histolytica PCR Stool Giardia Lamblia PCR Stool Salmonella PCR Stool Sapovirus (PCR) Stl P. shigelloides PCR Stl Shigella/EIEC PCR St Y.enterocolitica PCR Stool Vibrio (PCR) Stl Vibrio cholerae PCR Stl Norovirus GI/GII PCR Urine Opiates Screen Ur Methadone, Qual Urine Fentanyl Screen Urine Barbiturates Ur Phencyclidine (PCP) U Amphetamin/Meth Scrn MDMA (Ecstasy) Screen U Benzodiazepines Scrn Ur Cocaine Metabolite U Marijuana (THC) Screen Medications Administered Current Inpatient Medications Acetaminophen (Acetaminophen 325 Mg Tab) 650 mg PO Q4H PRN PRN Reason: Pain or Fever Stop: 05/25/24 20:06 Albuterol (Albut/Ipratrop 3mg/0.5mg Neb 3 Ml Vial) 3 ml NEB Q2H PRN PRN Reason: Shortness of Breath/Wheezing Stop: 05/25/24 20:06 Dextrose (Dextrose 50% 50 Ml Syringe) 25 - 50 ml IV UD PRN; Protocol PRN Reason: Hypoglycemia Protocol Stop: 05/25/24 20:53 Fluticasone/Vilanterol (Fluticasone/Vilanterol 100/25mcg 14 Puffs/Inhaler) 1 puffs INH DAILY EULA; Protocol Stop: 05/26/24 08:59 Last Admin: 04/27/24 08:29 Dose: 1 puffs Glucagon (Glucagon For Inj 1 Mg Vial) 1 mg SQ UD PRN; Protocol PRN Reason: Hypoglycemia Protocol Stop: 05/25/24 20:53 Glucose (Glucose 40% Gel 15 Gm Tube) 15 - 30 gm PO UD PRN; Protocol PRN Reason: Hypoglycemia Protocol Stop: 05/25/24 20:53 Glucose (Glucose 10 Tab/Tube) 4 - 8 tab PO UD PRN; Protocol PRN Reason: Hypoglycemia Protocol Stop: 05/25/24 20:53 Heparin Sodium (Porcine) (Heparin Sod 5,000 Unit/0.5 Ml Vial) 5,000 units SQ BID [facility] Stop: 05/26/24 10:14 Last Admin: 04/27/24 08:31 Dose: 5,000 units Sodium Chloride (Nss) 1,000 mls @ 125 mls/hr IV .Q8H [facility] Stop: 04/28/24 09:29 Metoprolol Tartrate (Metoprolol Tartrate 50 Mg Tab) 50 mg PO BID [facility] Stop: 05/25/24 20:59 Last Admin: 04/27/24 08:28 Dose: 50 mg Miscellaneous (Carbohydrates For Hypoglycemia ) 15 - 30 gm PO UD PRN PRN Reason: Hypoglycemia Protocol Stop: 05/25/24 20:53 Sodium Zirconium Cyclosilicate (Sodium Zirconium Cyclosilicate 10 Gm Packet) 10 gm PO TID@0700,1400,2300 [facility] Stop: 04/27/24 14:01 Last Admin: 04/27/24 08:29 Dose: 10 gm (5) Chronic obstructive pulmonary disease COPD type: unspecified COPD Qualified Code(s): J44.9 - Chronic obstructive pulmonary disease, unspecified (6) CAD (coronary artery disease) Coronary Disease-Associated Artery/Lesion type: [place] artery [place] vs. transplanted heart: [place] heart Associated angina: without angina Qualified Code(s): I25.10 - Atherosclerotic heart disease of [place] coronary artery without angina pectoris (7) Hypertension Hypertension type: primary hypertension Qualified Code(s): I10 - Essential (primary) hypertension
--- NOTE | 2024-04-27 09:40 | Nephrology Progress Note ---
Date of Service April 27, 2024 Assessment & Plan (1) Hyperkalemia: Plan: critical/life-threatening hyperkalemia further improving w/ intensive medical management. p/w K 7.2 > 6 > 5.4 most recently. -worsening/mild hyperchloremia but this is more acceptable than prolonged critical K elevation >>will change IVF to 1/2 NS w/ 75 mEq sodium bicarb still at 125 mL hourly -he has one more dose of lokelma TID x 6 doses >> will then dose lokelma daily starting tomorrow -continue cardiac monitoring -dialysis diet ok for now (2) Acute renal failure: Plan: nonoliguric presume stage 3 AMBROSIO, further improving nicely w/ hydration. no obstruction or acute renal process on imaging. urine sediment bland; urine relatively unconcentrated for pt w/ severe prerenal process but so far he is responding as though prerenal; that said recent antibiotics and infection may play a role not only in diarrhea but in renal dysfunction as well; would need more information ideally on abtx, recent infection. Presented w/ creatinine 6.8, peak 7.0; down to 5.2 w/in 12 hrs and currently at 3.4 -continue IVF as above -continue to hold lasix, lisinopril -no indication for urgent dialysis and not likely to need this admission -ok to d/c shyam -with K 5.5 or less suggest bmp q12h (order in)and lower lokelma dose to daily ->>prior to admission notes/records from [facility] needed and [facility]O order placed; we received records but they were removed from the chart presume by HIM before I could review and not scanned yet: >last clinic note just prior to admission >recent clinic note over a week back where decision was made to give abtx >need to know what antibiotic he was recently given >biopsy result from R posterior thigh from a few years back if available -most recent 3 BMP or CMP on file Admission and Anticipated Discharge Date Admission Date: April 25, 2024 Subjective no acute interval events clinically; on 2L when I saw him denies outside of hospital 02 use. feeling relatively well > no sob, no n/v, no edema; no further diarrhea and tolerating po; posterior thigh lesion not examined today Review of Systems 2 Review of Systems: All systems reviewed & are unremarkable except as noted in Subjective Physical Exam 2 Constitutional: well developed, well nourished and cooperative; no acute distress Eyes: EOM intact bilaterally ENMT: Mouth: + dry oral mucous membranes Respiratory: normal respiratory effort Auscultation: + diminished lung sounds (marked); no rhonchi Cardiovascular: RRR, no murmur, no edema Gastrointestinal (Abdomen): Inspection/Auscultation: normal bowel sounds P ercussion/Palpation: abdomen soft; abdomen nontender Musculoskeletal: Extremities: strength 5/5 throughout Skin: no rashes, warm and dry Psychiatric: Orientation: alert and oriented x 3 Speech: normal rate/rhythm/volume of speech Results & Data Vital Signs (Past 12 Hours) Vital Signs Temp Pulse Pulse Resp BP Pulse Ox O2 Del Method 04/27/24 08:20 36.6 C 70 20 121/70 98 Nasal Cannula 04/26/24 23:30 71 O2 Flow Rate 04/27/24 08:20 2 04/26/24 23:30 Laboratory Results 04/27/24 05:37 04/27/24 05:37 (2) Acute renal failure Acute renal failure type: unspecified Qualified Code(s): N17.9 - Acute kidney failure, unspecified
[2024-04-27] MEDS: SODIUM BICARBONATE 8.4% 75 MEQ in SODIUM CHLORIDE 0.45 % 1,000 ML IV SCH (10:19)
[2024-04-27] MEDS: SODIUM CHLORIDE 0.9% 1,000 ML IV SCH (11:28)
[2024-04-27 17:31] LABS: Calcium 8.7 mg/dl (8.6-10.3); Potassium 4.7 mmol/L (3.5-5.1)
[2024-04-27 17:37] LABS: BUN Creatinine Ratio 26.2 (10-20)
[2024-04-27] MEDS: ACETAMINOPHEN 325 MG TAB PO PRN (20:40)
[2024-04-28 09:01] LABS: BUN Creatinine Ratio 26.9 (10-20); Calcium 8.2 mg/dl (8.6-10.3); Creatinine Clr Calc Pharmacy 30.8 ml/min; Magnesium 1.9 mg/dl (1.7-2.4); Phosphorus 2.6 mg/dl (2.5-4.9)
--- NOTE | 2024-04-28 09:56 | Nephrology Progress Note ---
Date of Service April 28, 2024 Assessment & Plan (1) Hyperkalemia: Plan: critical/life-threatening hyperkalemia resolved w/ intensive medical management. p/w K 7.2 > 6 > 5.4 > 4 most recently. outside charts reviewed > he was on bactrim, lisinopril, spironolactone [employer] -worsening/mild hyperchloremia but this is more acceptable than prolonged critical K elevation >no IVF currently and non eneeded -s/p lokelma TID x 6 doses -continue cardiac monitoring ->>>>removed dialysis diet; continued heart healthy diet; stopped lokelma Will sign off. NEPHRO d/c RECS -tomorrow would resume spironolactone 12.5 mg daily and bumex ONE (not prior to admission 2) mg daily -repeat bmp after one week back on spironolactone/ bumex >> reassess dizziness/volume status/ BP/ labs and at that point consider resuming lisinopril TEN (not prior to admission 20) mg daily -repeat bmp after 7-10 days back on lisinopril -with stage 3 AMBROSIO and underlying CKD 3B and significant cardiac disease and unknown albuminuria status > should be evaluated by a labeling specialist w/in 2-4 wks of hospital d/c; pls contact [facility] d/c sales planner if desired at [facility] clinic; usually though corrections has its own specialists Care coordinated w/ Dr Gonzalez regarding sign off recommendations for meds/labs/military source operations specialist care as well as plans for urinary retention, R thigh soft tissue lesion (2) Acute renal failure: Plan: nonoliguric stage 3 AMBROSIO, further improving nicely w/ hydration. no obstruction or acute renal process on imaging. urine sediment bland; urine relatively unconcentrated for pt w/ severe prerenal process but so far he is responding as though prerenal; that said prior to admission bactrim therapy and infection may play a role not only in diarrhea but in renal dysfunction as well; also was volume depleted while on bumex, spironolactone. Presented w/ creatinine 6.8, peak 7.0; down to 5.2 w/in 12 hrs and currently at 2.3 -no further IVF indicated -no indication for urgent dialysis this admission (3) CKD (chronic kidney disease) stage 3, GFR 30-59 ml/min: Plan: only one outside data point found >> creatinine 2 for eGFR low 30s at August 2023/ spring 2023 chronic disease check; albuminuria status unknown; will call creat of 2 his baseline (4) Soft tissue infection: Plan: posterior R thigh > defer to primary service to reevaluate; determine next best steps (5) Urinary retention: Plan: per primary service > did void w/o issues initially after howe removal but then frequency and retention Admission and Anticipated Discharge Date Admission Date: April 25, 2024 Subjective had some urinary retention after dribbling 10-15 ml repeatedly >> then str cath 0530 for 800 mL. no pain, no sob, no edema Review of Systems 2 Review of Systems: All systems reviewed & are unremarkable except as noted in Subjective Physical Exam 2 Constitutional: well developed, well nourished and cooperative; no acute distress Eyes: EOM intact bilaterally ENMT: Mouth: + dry oral mucous membranes Respiratory: normal respiratory effort Auscultation: + diminished lung sounds (marked); no rhonchi Cardiovascular: RRR, no murmur, no edema Gastrointestinal (Abdomen): Inspection/Auscultation: normal bowel sounds P ercussion/Palpation: abdomen soft; abdomen nontender Musculoskeletal: Extremities: strength 5/5 throughout Skin: no rashes, warm and dry Psychiatric: Orientation: alert and oriented x 3 Speech: normal rate/rhythm/volume of speech Results & Data Vital Signs (Past 12 Hours) Vital Signs Temp Pulse Pulse Resp BP Pulse Ox O2 Del Method 04/28/24 08:11 36.5 C 77 19 107/70 97 Nasal Cannula 04/28/24 07:00 66 04/28/24 03:37 36.6 C 67 16 125/52 L 97 Nasal Cannula 04/27/24 23:22 36.4 C L 65 16 99/64 L 97 Nasal Cannula 04/27/24 22:54 Room Air, Nasal Cannula O2 Flow Rate 04/28/24 08:11 04/28/24 07:00 04/28/24 03:37 1 04/27/24 23:22 2 04/27/24 22:54 2 Laboratory Results 04/27/24 05:37 04/28/24 07:18 (2) Acute renal failure Acute renal failure type: unspecified Qualified Code(s): N17.9 - Acute kidney failure, unspecified
[2024-04-28 10:44] VITALS: RESP 16; TEMP 97.9; O2SAT 98
[2024-04-28] MEDS ORDERED: SODIUM ZIRCONIUM CYCLOSILICATE 10 GM PACKET PO SCH (11:00)
--- NOTE | 2024-04-28 14:49 | Discharge Summary ---
Discharge Summary Date of Service April 28, 2024 Principal Dx & Hospital Course #1 = Principal Diagnosis (1) Acute renal failure (ARF): (2) Acute hyperkalemia: (3) Hypermagnesemia: (4) Acute diarrhea: (5) Chronic obstructive pulmonary disease: (6) CAD (coronary artery disease): (7) Hypertension: (8) History of abdominal aortic aneurysm (AAA) repair: Notes For Next Care Provider Medication Changes From Visit His Aldactone will be resumed at 12.5 mg daily He is on Bumex 2 mg twice daily however per nephrology this will be lowered to 2 mg daily from tomorrow His lisinopril 20 mg daily will be put on hold, chemistry panel in 1 week and then if needed to resume at 10 mg daily Since patient required to have Rodrigues catheter in place, I communicated with MD at correctional facility to arrange for urology follow-up in 3 to 4 days for voiding trial Patient also need to be set up to be followed up by nephrology in 2 to 3 weeks. Admission HPI Per Admitting Provider Patient is a 78-year-old inmate who was brought in after several days of diarrhea and weakness, patient was found to be in acute renal failure with hafsa re hyperkalemia, patient was initially in critical state, was managed with insulin/dextrose to lower his potassium, he had no significant EKG findings however, nephrology was consulted, patient was managed with IV fluid, Rodrigues catheter in place to accurately monitor intake and output, and Lokelma to reduce his potassium. After several days of treatment, his potassium normalized, his creatinine came down to 2.3 which seems to be close to his baseline as patient has CKD stage III. Rodrigues catheter was removed today however after that, patient was unable to void which is sometimes normal in this age group of patients, patient was given twice the chance send he had to be assisted with straight catheterization and eventually decision was made to put Rodrigues catheter in. Nephrology recommendation was seen and appreciated, will proceed with discharging him home with follow-up by nephrology and urology as outpatient, exact order of medication changes were verbally and in writing and discharge s ummary given to MD at correctional facility. Discharge Exam VITALS: Reviewed. WEIGHT/BMI reviewed. GEN: Healthy appearing, well-developed, NAD. CV: RRR, no m/r/g. LUNGS: CTAB, no w/r/c. ABD: Soft, NT/ND, NBS, no masses or organomegaly. Updated Medication List Medication Instructions Recorded Confirmed Type albuterol sulfate 90 mcg/actuation 2 puff inhalation QID PRN 08/20/21 12/11/21 History aerosol inhaler Shortness Of Breath aspirin 81 mg chewable tablet 81 mg PO DAILY 08/20/21 12/11/21 History atorvastatin 10 mg tablet 10 mg PO DAILY 08/20/21 12/11/21 History fluticasone 250 mcg-salmeterol 50 1 inh inhalation BID 08/20/21 12/11/21 History mcg/dose blistr powdr for inhalation ([facility] [employer]) folic acid 1 mg tablet 1 mg PO DAILY 08/20/21 12/11/21 History isosorbide mononitrate 30 mg 30 mg PO DAILY 08/20/21 12/11/21 History tablet,extended release 24 hr lisinopril 20 mg tablet 20 mg PO DAILY 08/20/21 12/11/21 History meclizine 12.5 mg tablet 12.5 mg PO TID 08/20/21 12/11/21 History metoprolol tartrate 50 mg tablet 50 mg PO BID 08/20/21 12/11/21 History nitroglycerin 0.4 mg sublingual 0.4 mg sublingual QID PRN Chest 08/20/21 12/11/21 History tablet Pain Hospital Stay Data Consultations 04/25/24 17:52 ED Decision to Admit Stat 04/25/24 20:07 Consult Beauty Artist Routine Consult Nephrology Routine Diagnostic Imagining Performed 04/25/24 17:35 CT abd pelvis wo con Stat Pending Results Patient Have Any Pending Studies at Discharge: Yes Discharge Instructions Given to Patient (Per Discharging Provider) Patient requires to keep Rodrigues catheter in place as he continued to show inability to empty his bladder with retaining about 800 mL requiring assistance with straight catheterization and later with Rodrigues catheter. Will allow this to be in place for another 4 to 5 days, patient needs to be seen by urology as outpatient for voiding trial. Total Time Total Time Spent Total Time Spent (In Minutes): More than 45 minutes
[2024-04-28 15:05] VITALS: BP 134/68; PULSE 88
== END 2024-04-28 16:46 | DRG 683 ==
LOC: ED 14:49 → SUATTDRO 19:04 → 1E 19:04 → 2E 04-27 18:38

== ENCOUNTER 2024-05-08 11:54 | Observation (INO) ==
--- NOTE | 2024-05-08 12:25 | Emergency Department Note ---
Impression & Plan Cellulitis, Failure of outpatient treatment, Elevated lactic acid level, Anemia ED Provider Note NAME: JOSELIN [id number] SYLVIE AGE: 78 SEX: M : 1945 ARRIVES VIA: Walk-In INFORMANT: [Patient] ED PROVIDER(S): [Jeffery Parker MD] CHIEF COMPLAINT: Cellulitis HISTORY OF PRESENT ILLNESS: The patient is an 78-year-old male who was discharged from our hospital around 10 days ago after having acute renal failure. He developed a lesion, blister, at the insertion site of an IV. The right antecubital fossa had a blister and swelling. Since discharge from the hospital, the area has become larger, there has been some swelling and erythema. He has been [facility]. Things are not improving and he was sent to the ED as he likely is going to need IV antibiotic therapy. The patient is not short of breath. He does not have chills, there has been no fever. He does state there is some discomfort in the area of the swelling but, it is tolerable, it has been draining. PMHx/PSHx/Social Hx: See Below PHYSICAL EXAM: GENERAL: Patient is in no acute distress. HEENT: No acute trauma, normocephalic atraumatic, mucous membranes moist, no nasal congestion. NECK: No stridor, no adenopathy, no meningismus, trachea is midline. LUNGS: Clear to auscultation bilaterally, no wheeze, no rhonchi, breath sounds equal. Breath sounds are diminished bilaterally. HEART: Without murmurs gallops or rubs, regular rate and rhythm. ABDOMEN: Soft, nontender, no peritonitis. EXTREMITIES: No cyanosis. He does have some mild to moderate bilateral pedal edema. There is edema of the right upper extremity. There is erythema in the anterior medial antecubital fossa that spreads down the forearm. There is an open lesion which appears to have been a blister that ruptured. NEUROLOGIC: Oriented x 3, no acute motor or sensory deficits, no focal weakness. SKIN: No jaundice, no diaphoresis. Somewhat pale. DIFFERENTIAL DIAGNOSIS: Cellulitis, abscess, neurovascular compromise, failed outpatient treatment, among others. EMERGENCY DEPARTMENT PROCEDURES: MEDICAL DECISION MAKING: There is no leukocytosis. The patient is anemic but he does carry a history of anemia. There was a normal platelet count. Creatinine was elevated at 1.96, although elevated, this is improved compared to recent testing. No electrolyte abnormality in need of emergent correction. Lactic acid level was slightly elevated, consistent with potential infection/sepsis. No concerning liver enzyme elevation. CT of his right arm did not show abscess, cellulitis and soft tissue swelling was seen. On exam, there appeared to be a cellulitis to the right arm originating from the right antecubital fossa. There was no evidence for right upper extremity neurovascular compromise. I did obtain a wound culture. Patient received IV cefepime as antibiotic coverage. During his stay, he was given a DuoNeb and was ordered for albuterol via [facility]. The patient presents with a cellulitis of the right arm. He has been receiving IM ceftriaxone at the alf without improvement. At this point, given his findings, I do think he requires a hospital stay. I spoke with the patient and the guards. I spoke with case management. The on-call hospitalist was consulted. Prior/Outside records/notes reviewed: Today's alf notes describing his presentation, their concerns and the need for an ED referral. Imaging/x-ray results per my interpretation: Chronic Medical/Social conditions affecting care: Currently incarcerated, advanced age. Care/Management discussed with: Case management, the on-call hospitalist. Level of care consideration(s): After review of the information above and other included data: --I believe the patient requires escalation of care to admission DISPOSITION: Admission Past Med/Surg History Problem List (Updated 05/08/24 @ 16:26 by Jeffery Parker MD) Anemia (Acute) Elevated lactic acid level (Acute) Failure of outpatient treatment (Acute) Cellulitis (Acute) Cellulitis of right upper extremity Urinary retention Soft tissue infection CKD (chronic kidney disease) stage 3, GFR 30-59 ml/min creatinine 24 august 2023 Hyperkalemia Acute renal failure (Acute) Metabolic acidosis (Acute) Acute diarrhea (Acute) Hypermagnesemia Acute hyperkalemia (Acute) Acute renal failure (ARF) Encounter for pre-operative examination AAA (abdominal aortic aneurysm) without rupture hx of--repaired 2016 Medical History Chronic obstructive pulmonary disease inhaler daily/prn CAD (coronary artery disease) Hearing deficit Acid reflux Vertigo Hyperlipidemia Hypertension Surgical History History of cataract surgery History of appendectomy History of abdominal aortic aneurysm (AAA) repair (~03/2016) percurtaneous endovascular repair--Dr. Starks @ [facility] Family History Other Family history unobtainable Social History Smoking Status: Former smoker Tobacco Type: Cigarettes Second Hand Exposure: No; Do You Dip or Chew Tobacco: No; Tobacco Cessation Education Requested by Patient: No Hx Alcohol Use: No Hx Substance Use: No Preferred Language: Indonesian Communication Ability: Effective Portfolio Assistant Required: No Beliefs That Will Affect Care: None Current Living Situation: Legal Guardian Current Living Situation Comment: Inmate Other Information That Helps Us Care for You: No Feels Safe at Home: Yes Safety Concerns: Feels Safe At This Time Assistive Devices: Cane and Wheelchair Allergies Allergies Allergy/AdvReac Type Severity Reaction Status Date / Time Penicillins Allergy Unknown PER RECORD Verified 02/10/22 07:41 Home Meds Home Medications Medication Instructions Recorded Confirmed albuterol sulfate 90 mcg/actuation 2 puff inhalation QID PRN 08/20/21 05/08/24 aerosol inhaler Shortness Of Breath aspirin 81 mg chewable tablet 81 mg PO DAILY 08/20/21 05/08/24 atorvastatin 10 mg tablet 10 mg PO DAILY 08/20/21 05/08/24 fluticasone 250 mcg-salmeterol 50 1 inh inhalation BID 08/20/21 05/08/24 mcg/dose blistr powdr for inhalation (Wixela Inhub) folic acid 1 mg tablet 1 mg PO DAILY 08/20/21 05/08/24 isosorbide mononitrate 30 mg 30 mg PO DAILY 08/20/21 05/08/24 tablet,extended release 24 hr lisinopril 20 mg tablet 10 mg PO DAILY 08/20/21 05/08/24 meclizine 12.5 mg tablet 12.5 mg PO TID 08/20/21 05/08/24 metoprolol tartrate 50 mg tablet 50 mg PO BID 08/20/21 05/08/24 nitroglycerin 0.4 mg sublingual 0.4 mg sublingual QID PRN Chest 08/20/21 05/08/24 tablet Pain bumetanide 1 mg tablet 1 mg PO DAILY 05/08/24 05/08/24 spironolactone 25 mg tablet 12.5 mg PO DAILY 05/08/24 05/08/24 Results & Data (ED) Vital Signs Vital Signs - 24 hr 05/08/24 11:59 05/08/24 12:24 05/08/24 14:00 Temperature 36.5 C Temperature Source Temporal Artery Scan Pulse Rate 74 67 Pulse Rate [Apical] 76 Respiratory Rate 20 22 Respiratory Effort / Characteristics Non-Labored Spontaneous Non-Labored Spontaneous Respiratory Depth Normal Normal Respiratory Pattern Regular Blood Pressure 121/71 Blood Pressure [Right Arm] 121/70 Blood Pressure Mean 87 Blood Pressure Mean [Right Arm] 87 Blood Pressure Position [Right Arm] Lying Pulse Oximetry 97 96 Oxygen Delivery Method Room Air Room Air Sepsis Recent Fever Within 48 Hours No Sepsis New/Unexplained Change in Mental Status No Sepsis Action Taken by Nursing No Action Required Home Medications Current Medication List: was personally reviewed by me Laboratory Data Attestation: I reviewed the patient's lab results. 05/08/24 12:50 05/08/24 12:50 Lab Results 05/08/24 Range/Units 12:50 WBC 7.94 (4.8-10.8) K/ul RBC 2.87 L (4.70-6.10) M/uL Hgb 9.8 L (14.0-18.0) g/dl Hct 31.0 L (42.0-52.0) % MCV 108.0 H (80.0-100.0) fL MCH 34.1 H (25.0-34.0) pg MCHC 31.6 L (32.0-36.0) g/dL RDW Std Deviation 53.9 H (36.4-46.3) fL RDW Coeff of Corey 13.8 (11.5-14.5) % Plt Count 287 (130-400) K/uL MPV 10.1 (9.4-12.4) fL Immature Gran % (Auto) 0.6 % Neut % (Auto) 74.8 % Lymph % (Auto) 9.4 % Eaton % (Auto) 11.1 % Eos % (Auto) 3.3 % Baso % (Auto) 0.8 % Neut # (Auto) 5.94 (1.40-6.50) K/uL Lymph # (Auto) 0.75 L (1.20-3.40) K/uL Eaton # (Auto) 0.88 H (0.11-0.59) K/uL Eos # (Auto) 0.26 (0.00-0.50) K/uL Baso # (Auto) 0.06 (0.00-0.20) K/uL Immature Gran # (Auto) 0.05 (0.01-0.20) K/uL Sodium 143 (136-145) mmol/L Potassium 4.7 (3.5-5.1) mmol/L Chloride 107 (98-107) mmol/L Carbon Dioxide 27 (21-32) mmol/L Anion Gap 9 (3-11) BUN 52 H (6-23) mg/dl Creatinine 1.96 H (0.6-1.4) mg/dl Est Cr Clr Drug Dosing Not Reportable eGFR 33.93 BUN/Creatinine Ratio 26.5 H (10-20) Glucose 100 H (70-99(Fasting)) mg/dl Lactate 2.5 H* (0.4-2.0) mmol/L Calcium 8.6 (8.6-10.3) mg/dl Magnesium 2.0 (1.7-2.4) mg/dl Total Bilirubin 0.3 (0.2-1.0) mg/dl AST 16 (13-39) U/L ALT 15 (7-52) U/L Alkaline Phosphatase 61 (34-104) U/L Total Protein 6.5 (6.0-8.3) gm/dl Albumin 3.9 (3.4-5.0) gm/dl Globulin 2.6 (2.5-4.0) gm/dl Albumin/Globulin Ratio 1.5 (0.9-2) Administered Medications Miscellaneous (Patient's Height &/Or Weight Needed) 1 each N/A Q2H EULA Stop: 06/07/24 15:59 Last Admin: 05/08/24 16:14 Dose: Not Given Documented By: AAH Discontinued Medications Albuterol (Albuterol Hfa 8 Gm Inhaler) 2 puffs INH NOW ONE Stop: 05/08/24 14:01 Last Admin: 05/08/24 14:23 Dose: 2 puffs Documented By: ARIE Albuterol (Albut/Ipratrop 3mg/0.5mg Neb 3 Ml Vial) 3 ml NEB NOW STA; Protocol Stop: 05/08/24 14:01 Last Admin: 05/08/24 14:23 Dose: 3 ml Documented By: ARIE Cefepime HCl 2,000 mg/ Syringe 27.5 mls @ 5.5 mls/min IV NOW STA Stop: 05/08/24 13:53 Last Admin: 05/08/24 14:35 Dose: Not Given Documented By: ARIE Cefepime HCl 2,000 mg/ Syringe 20 mls @ 5.5 mls/min IV NOW STA Stop: 05/08/24 13:59 Last Admin: 05/08/24 14:23 Dose: 5.5 mls/min Documented By: ARIE Imaging Data Radiologist's Impression: Forearm CT 05/08/24 12:15 CT forearm RT wo con HISTORY: 78 years-old Male poss abscess, renal disease acute pain of the right forearm with possible soft tissue infection COMPARISON: None TECHNIQUE: Multiple axial CT images of the right forearm were obtained without IV contrast. A dose lowering technique was used consistent with the principals of ALARA. FINDINGS: Limited exam secondary to positioning. There is moderate cutaneous thickening with subcutaneous edema no discrete fluid collections identified. Tendons and ligaments are not well evaluated by CT technique. There is a 5 cm lipoma of the proximal forearm on image 42 series 200 and image 266 of series 301. Mineralized appearance of the bones with chondrocalcinosis of the carpus. No acute fracture, dislocation or osseous erosion is identified. Moderate osteoarthritis of the elbow. IMPRESSION: 1. No acute osseous abnormality. 2. Dermal thickening with subcutaneous edema which may represent cellulitis, venous stasis or lymphedema. 2. No abscess identified by CT. ACT 112: Negative or not required by law. The above report was generated using voice recognition software. It may contain grammatical, syntax or spelling errors. Electronically signed by: Justen Cortes M.D. 05/08/2024 1:43 PM Discharge Plan Visit Data Chief Complaint: Need IV Start Stated Complaint: WORSENING CELLULITIS, NEEDS AN IV ED Provider: Jeffery Parker Discharge Problem: Cellulitis, Failure of outpatient treatment, Elevated lactic acid level, Anemia Patient Disposition: Admitted As Inpatient Condition: Fair Discharge Instructions Interventions: ED Discharge Assessment Last Done: 05/08/24 14:53 Discharge Problem: Cellulitis Qualifiers: Site of cellulitis: extremity Site of cellulitis of extremity: upper extremity Laterality: right Qualified Code(s): L03.113 - Cellulitis of right upper limb Anemia Qualifiers: Anemia type: unspecified type Qualified Code(s): D64.9 - Anemia, unspecified
[2024-05-08 13:35] LABS: Basophils # (auto) 0.06 K/uL (0.00-0.20); Basophils % (auto) 0.8 %; Eosinophils # (auto) 0.26 K/uL (0.00-0.50); Eosinophils % (auto) 3.3 %; Hemoglobin 9.8 g/dl (14.0-18.0); Immature Granulocytes # (auto) 0.05 K/uL (0.01-0.20); Immature Granulocytes % (auto) 0.6 %; Lymphocytes # (auto) 0.75 K/uL (1.20-3.40); Lymphocytes % (auto) 9.4 %; Mean Corpuscular Hemoglobin 34.1 pg (25.0-34.0); Mean Corpuscular Hgb Conc 31.6 g/dL (32.0-36.0); Mean Platelet Volume 10.1 fL (9.4-12.4); Monocytes # (auto) 0.88 K/uL (0.11-0.59); Monocytes % (auto) 11.1 %; Neutrophils # (auto) 5.94 K/uL (1.40-6.50); Neutrophils % (auto) 74.8 %; Platelet Count 287 K/uL (130-400); RDW Coefficient of Variation 13.8 % (11.5-14.5); RDW Standard Deviation 53.9 fL (36.4-46.3); Red Blood Count 2.87 M/uL (4.70-6.10); White Blood Count 7.94 K/ul (4.8-10.8)
--- NOTE | 2024-05-08 13:45 | CT Scan Report ---
CT forearm RT wo con HISTORY: 78 years-old Male poss abscess, renal disease acute pain of the right forearm with possible soft tissue infection COMPARISON: None TECHNIQUE: Multiple axial CT images of the right forearm were obtained without IV contrast. A dose lo wering technique was used consistent with the principals of STANLEY. FINDINGS: Limited exam secondary to positioning. There is moderate cutaneous thickening with subcutaneous edema no discrete fluid collections identified. Tendons and ligaments are not well evaluated by CT techniq ue. There is a 5 cm lipoma of the proximal forearm on image 42 series 200 and image 266 of series 301 . Mineralized appearance of the bones with chondrocalcinosis of the carpus. No acute fracture, dislocat ion or osseous erosion is identified. Moderate osteoarthritis of the elbow. IMPRESSION: 1. No acute osseous abnormality. 2. Dermal thickening with subcutaneous edema which may represent cellulitis, venous stasis or lymphed ursula. 2. No abscess identified by CT. ACT 112: Negative or not required by law. The above report was generated using voice recognition software. It may contain grammatical, syntax o r spelling errors. Electronically signed by: Justen Cortes M.D. 05/08/2024 1:43 PM
[2024-05-08 13:48] LABS: Alanine Aminotransferase 15 U/L (7-52); Albumin Globulin Ratio 1.5 (0.9-2); Albumin Level 3.9 gm/dl (3.4-5.0); Alkaline Phosphatase 61 U/L (34-104); Anion Gap 9 (3-11); Aspartate Aminotransferase 16 U/L (13-39); BUN Creatinine Ratio 26.5 (10-20); Bilirubin,Total 0.3 mg/dl (0.2-1.0); Blood Urea Nitrogen 52 mg/dl (6-23); Calcium 8.6 mg/dl (8.6-10.3); Carbon Dioxide 27 mmol/L (21-32); Chloride 107 mmol/L (98-107); Globulin 2.6 gm/dl (2.5-4.0); Glucose 100 mg/dl (70-99(Fasting)); Potassium 4.7 mmol/L (3.5-5.1); Sodium 143 mmol/L (136-145); Total Protein 6.5 gm/dl (6.0-8.3)
[2024-05-08] MEDS: ALBUT/IPRATROP 3MG/0.5MG NEB 3 ML VIAL NEB STA (14:23)
[2024-05-08] MEDS: ALBUTEROL HFA 8 GM INHALER INH ONE (14:23)
[2024-05-08] MEDS: CEFEPIME 2,000 MG in SYRINGE 0 ML IV STA (14:23)
[2024-05-08] MEDS: CEFEPIME 2,000 MG in SYRINGE 7.5 ML IV STA (14:35)
--- NOTE | 2024-05-08 14:56 | History & Physical Report ---
Date of Service May 08, 2024 Assessment & Plan (1) Cellulitis of right upper extremity: (2) CKD (chronic kidney disease) stage 3, GFR 30-59 ml/min: (3) Chronic obstructive pulmonary disease: (4) CAD (coronary artery disease): Plan This is an 78-year-old male who has a significant past medical history of CAD, HTN, HLD, COPD, history of tobacco abuse, AAA status post graft, CKD stage III4 who presents to ED secondary to increasing redness to right upper extremity for several days. RUE Cellulitis Recent infiltration of AC IV site Hemorrhagic bulla s/p rupture admit to med/surg continue IV rocephin await surface culture wound consult RUE Venous duplex ordered --CT Dermal thickening with subcutaneous edema which may represent cellulitis, venous stasis or lymphedema. CKD-3 Recent admission for ARF and hyperkalemia resolved, cr at baseline avoid nephrotoxic agents all home meds resumed CAD/HTN/HLD: continue asa, statin, bumex, lisinopril, aldactone & metoprolol daily weights, I and O, pt with +2pitting edema, consider IV bumex if worsens COPD: chronic, stable, continue home inhalers DVT ppx: SQ Heparin FULL CODE PCP: Yoel SILVER Dispo: admit to med/surg of IV antibiotics Pt was seen and examined in collaboration with Dr. Gonzalez, please see addendum I spent a total of 76 minutes reviewing notes, outpatient records, labs, medication, coordinating, documenting and providing care for this patient excluding time spent in the performance of separately billed services. History of Present Illness Chief Complaint: Increasing redness to RUE x several days. Primary Care Provider: NADEEM Diallo This is an 78-year-old male who has a significant past medical history of CAD, HTN, HLD, COPD, history of tobacco abuse, AAA status post graft, CKD stage III4 who presents to ED secondary to increasing redness to right upper extremity for several days. Of significance patient was recently hospitalized from 04/25 to 04/28 secondary to acute renal failure. It was also felt that he had urinary retention and a Rodrigues catheter was placed. His symptoms were brought on by several episodes of preceding diarrhea as well as nephrotoxins. Admitting creatinine was 6.84. Upon discharge it was 2.27. He was treated with IV fluid and evaluated by nephrology. During his hospital stay he had a right antecubital IV site infiltrate. Picture was noted in chart from 04/27/2024. He has been receiving IV ceftriaxone over at corrections facility. He denies any fever, chills, sweats, chest pain, shortness of breath at rest, nausea, vomiting, abdominal pain, dysuria, increased urgency frequency with urination, melena or hematochezia. His diarrhea has since resolved. His Rodrigues catheter was removed at the residential and he is voiding without difficulty. He does have chronic shortness of breath secondary to COPD. In ED patient was hemodynamically stable. He did have a mild lactic acidosis at 2.5 but otherwise did not meet septic criteria. He received IV cefepime in ED. Allergies Allergy/AdvReac Type Severity Reaction Status Date / Time Penicillins Allergy Unknown PER RECORD Verified 02/10/22 07:41 Home Medications Medication Instructions Recorded Confirmed Type albuterol sulfate 90 mcg/actuation 2 puff inhalation QID PRN 08/20/21 05/08/24 History aerosol inhaler Shortness Of Breath aspirin 81 mg chewable tablet 81 mg PO DAILY 08/20/21 05/08/24 History atorvastatin 10 mg tablet 10 mg PO DAILY 08/20/21 05/08/24 History fluticasone 250 mcg-salmeterol 50 1 inh inhalation BID 08/20/21 05/08/24 History mcg/dose blistr powdr for inhalation (Wixela Inhub) folic acid 1 mg tablet 1 mg PO DAILY 08/20/21 05/08/24 History isosorbide mononitrate 30 mg 30 mg PO DAILY 08/20/21 05/08/24 History tablet,extended release 24 hr lisinopril 20 mg tablet 10 mg PO DAILY 08/20/21 05/08/24 History meclizine 12.5 mg tablet 12.5 mg PO TID 08/20/21 05/08/24 History metoprolol tartrate 50 mg tablet 50 mg PO BID 08/20/21 05/08/24 History nitroglycerin 0.4 mg sublingual 0.4 mg sublingual QID PRN Chest 08/20/21 05/08/24 History tablet Pain bumetanide 1 mg tablet 1 mg PO DAILY 05/08/24 05/08/24 History spironolactone 25 mg tablet 12.5 mg PO DAILY 05/08/24 05/08/24 History Past Med/Surg History Problem List (Updated 05/08/24 @ 15:23 by Eneida Prabhakar PA-C) Cellulitis of right upper extremity Urinary retention Soft tissue infection CKD (chronic kidney disease) stage 3, GFR 30-59 ml/min creatinine 24 august 2023 Hyperkalemia Acute renal failure (Acute) Metabolic acidosis (Acute) Acute diarrhea (Acute) Hypermagnesemia Acute hyperkalemia (Acute) Acute renal failure (ARF) Encounter for pre-operative examination AAA (abdominal aortic aneurysm) without rupture hx of--repaired 2015 Medical History Chronic obstructive pulmonary disease inhaler daily/prn CAD (coronary artery disease) Hearing deficit Acid reflux Vertigo Hyperlipidemia Hypertension Surgical History History of cataract surgery History of appendectomy History of abdominal aortic aneurysm (AAA) repair (~03/2016) percurtaneous endovascular repair--Dr. Starks @ [facility] Family History Other Family history unobtainable Social History Smoking Status: Unknown if ever smoked Tobacco Type: Cigarettes Hx Alcohol Use: No Hx Substance Use: No Preferred Language: Nepalese Communication Ability: Unable Patient Services Representative Required: No Beliefs That Will Affect Care: None Current Living Situation: Legal Guardian Current Living Situation Comment: Inmate - from correctional facility. Feels Safe at Home: Yes Assistive Devices: None Review of Systems 2 Review of Systems: All systems reviewed & are unremarkable except as noted in HPI & below Physical Exam 2 Physical Exam: Constitutional: WD/WN, elderly, M, KLETSEL DEHE [place], vitals as above, NAD, sitting up in bed, pleasant, conversing easily Head: Normocephalic, Atraumatic Eyes: PERRL, conjunctivae normal, anicteric sclerae ENMT: external ear and nose normal, oropharynx normal Neck: trachea midline, no thyromegaly normal visual inspection Respiratory: normal respiratory effort, lungs clear to auscultation but decreased at bases, no wheeze, rales, rhonchi. Normal insp/exp effort, no accessory muscle use Cardiovascular: RRR, no murmur, ++ LE edema Vessels: no JVD or carotid bruit Chest: normal inspection of chest Abdomen: normal bowel sounds, soft, nontender, no hepatosplenomegaly Musculoskeletal: no cyanosis or clubbing, extremities motor strength 5/5 Skin: RUE antecubital wound/erythema noted in picture below, warm and dry normal turgor Neurologic: PERRL, EOMI, accommodation nl, no face palsy, no dysarthria CN's II-XI intact bilaterally and moves all extremities Psychiatric: A+Ox3, euthymic affect Lymphatic: no cervical or axillary lymphadenopathy : deferred Results & Data Results & Data Vital Signs (Past 12 Hours) Vital Signs Temp Pulse Pulse Resp BP BP Pulse Ox 05/08/24 14:53 05/08/24 14:00 76 22 121/70 96 05/08/24 12:24 67 05/08/24 11:59 36.5 C 74 20 121/71 97 O2 Del Method 05/08/24 14:53 Room Air 05/08/24 14:00 Room Air 05/08/24 12:24 05/08/24 11:59 Room Air Laboratory Results I have independently reviewed and interpreted patient's admitting labs including CBC, CMP, mag, lactate Diagnostic Findings Forearm CT 05/08/24 12:15 CT forearm RT wo con HISTORY: 78 years-old Male poss abscess, renal disease acute pain of the right forearm with possible soft tissue infection COMPARISON: None TECHNIQUE: Multiple axial CT images of the right forearm were obtained without IV contrast. A dose lowering technique was used consistent with the principals of [place]. FINDINGS: Limited exam secondary to positioning. There is moderate cutaneous thickening with subcutaneous edema no discrete fluid collections identified. Tendons and ligaments are not well evaluated by CT technique. There is a 5 cm lipoma of the proximal forearm on image 42 series 200 and image 266 of series 301. Mineralized appearance of the bones with chondrocalcinosis of the carpus. No acute fracture, dislocation or osseous erosion is identified. Moderate osteoarthritis of the elbow. IMPRESSION: 1. No acute osseous abnormality. 2. Dermal thickening with subcutaneous edema which may represent cellulitis, venous stasis or lymphedema. 2. No abscess identified by CT. ACT 112: Negative or not required by law. The above report was generated using voice recognition software. It may contain grammatical, syntax or spelling errors. Electronically signed by: Justen Cortes M.D. 05/08/2024 1:43 PM Medications Administered Medication List Discontinued Medications Albuterol (Albuterol Hfa 8 Gm Inhaler) 2 puffs INH NOW ONE Stop: 05/08/24 14:01 Last Admin: 05/08/24 14:23 Dose: 2 puffs Documented By: ARIE Albuterol (Albut/Ipratrop 3mg/0.5mg Neb 3 Ml Vial) 3 ml NEB NOW STA; Protocol Stop: 05/08/24 14:01 Last Admin: 05/08/24 14:23 Dose: 3 ml Documented By: ARIE Cefepime HCl 2,000 mg/ Syringe 27.5 mls @ 5.5 mls/min IV NOW STA Stop: 05/08/24 13:53 Last Admin: 05/08/24 14:35 Dose: Not Given Documented By: ARIE Cefepime HCl 2,000 mg/ Syringe 20 mls @ 5.5 mls/min IV NOW STA Stop: 05/08/24 13:59 Last Admin: 05/08/24 14:23 Dose: 5.5 mls/min Documented By: ARIE COVID-19 Results Results COVID-19 Adm Lab Results: 2 RBC 2.87 M/uL (4.70-6.10) L 05/08/24 WBC 7.94 K/ul (4.8-10.8) 05/08/24 Hgb 9.8 g/dl (14.0-18.0) L 05/08/24 Hct 31.0 % (42.0-52.0) L 05/08/24 Plt Count 287 K/uL (130-400) 05/08/24 Neutrophils (%) (Auto) 74.8 % 05/08/24 Lymphocytes (%) (Auto) 9.4 % 05/08/24 Monocytes # (Auto) 0.88 K/uL (0.11-0.59) H 05/08/24 Eosinophils # (Auto) 0.26 K/uL (0.00-0.50) 05/08/24 Immature Granulocyte % (Auto) 0.6 % 05/08/24 Neutrophils # (Auto) 5.94 K/uL (1.40-6.50) 05/08/24 Lymphocytes # (Auto) 0.75 K/uL (1.20-3.40) L 05/08/24 Monocytes # (Auto) 0.88 K/uL (0.11-0.59) H 05/08/24 Eosinophils # (Auto) 0.26 K/uL (0.00-0.50) 05/08/24 Basophils # (Auto) 0.06 K/uL (0.00-0.20) 05/08/24 Immature Granulocyte # (Auto) 0.05 K/uL (0.01-0.20) 4 Na 143 mmol/L (136-145) 05/08/24 K 4.7 mmol/L (3.5-5.1) 05/08/24 Cl 107 mmol/L (98-107) 05/08/24 CO2 27 mmol/L (21-32) 05/08/24 Anion Gap 9 (3-11) 05/08/24 BUN 52 mg/dl (6-23) H 05/08/24 Creatinine 1.96 mg/dl (0.6-1.4) H 05/08/24 BUN/Creatinine Ratio 26.5 (10-20) H 05/08/24 Glucose Level 100 mg/dl (70-99(Fasting)) H 05/08/24 Ca 8.6 mg/dl (8.6-10.3) 05/08/24 Total Bilirubin 0.3 mg/dl (0.2-1.0) 05/08/24 AST/SGOT 16 U/L (13-39) 05/08/24 ALT/SGPT 15 U/L (7-52) 05/08/24 Alkaline Phosphatase 61 U/L (34-104) 05/08/24 Total Protein 6.5 gm/dl (6.0-8.3) 05/08/24 Albumin 3.9 gm/dl (3.4-5.0) 05/08/24 Globulin 2.6 gm/dl (2.5-4.0) 05/08/24 Albumin/Globulin Ratio 1.5 (0.9-2) 05/08/24 Code Status & VTE Plan Code Status FULL CODE VTE Prophylaxis Plan VTE Prophylaxis will be ordered: Yes (3) Chronic obstructive pulmonary disease COPD type: unspecified COPD Qualified Code(s): J44.9 - Chronic obstructive pulmonary disease, unspecified (4) CAD (coronary artery disease) Coronary Disease-Associated Artery/Lesion type: [place] artery [place] vs. transplanted heart: [place] heart Associated angina: without angina Qualified Code(s): I25.10 - Atherosclerotic heart disease of [place] coronary artery without angina pectoris
--- NOTE | 2024-05-08 15:43 | Ultrasound Report ---
RIGHT UPPER EXTREMITY VENOUS DOPPLER ULTRASOUND CLINICAL HISTORY: Right upper extremity edema. COMPARISON STUDY: No previous studies for comparison. TECHNIQUE: Sonography of the venous system of the right upper extremity was performed. FINDINGS: The right internal jugular, subclavian, axillary, brachial, radial and ulnar veins are rebolleod nt. There is no deep venous thrombus within the right upper extremity. There is superficial thrombus within the right basilic vein which extends from the level of the proximal upper arm to the distal fo rearm. IMPRESSION: 1. No deep venous thrombus within the right upper extremity. 2. Long segment superficial thrombus within the right basilic vein, as described above. ACT 112: Negative or not required by law. Electronically signed by: Hiro Dennis M.D. 05/08/2024 3:42 PM
[2024-05-08] MEDS ORDERED: ONDANSETRON INJ 2 MG/ML 2 ML VIAL IV PRN (15:47)
[2024-05-08] MEDS ORDERED: POLYETHYLENE (MIRALAX) 17 GM PACK PO PRN (15:47)
[2024-05-08] MEDS: Patient's HEIGHT &/or WEIGHT Needed SCH (16:14)
[2024-05-08] MEDS: cefTRIAXone SODIUM 2,000 MG/50 ML BAG IV SCH (20:03)
[2024-05-08] MEDS: MECLIZINE 12.5 MG TAB PO SCH (20:03)
[2024-05-08] MEDS: METOPROLOL TARTRATE 50 MG TAB PO SCH (20:03)
[2024-05-08] MEDS ORDERED: MELATONIN 3 MG TAB PO PRN (21:00)
[2024-05-08] MEDS: ALBUTEROL HFA 8 GM INHALER INH PRN (21:20)
[2024-05-08] MEDS: HEPARIN SOD 5,000 UNIT/0.5 ML VIAL SQ SCH (21:21)
[2024-05-09] MEDS: ACETAMINOPHEN 325 MG TAB PO PRN (00:10)
[2024-05-09] MEDS: ALBUT/IPRATROP 3MG/0.5MG NEB 3 ML VIAL NEB PRN (00:52)
[2024-05-09] MEDS: lisinopril 10 MG TAB PO SCH (08:10)
[2024-05-09] MEDS: ISOSORBIDE MONO EXTENDED REL 30 MG TABCR PO SCH (08:10)
[2024-05-09] MEDS: SPIRONOLACTONE 12.5 MG TAB PO SCH (08:11)
[2024-05-09] MEDS: ADVANCED PROBIOTIC 625 MG CAPSULE PO SCH (08:11)
[2024-05-09] MEDS: ATORVASTATIN 10 MG TAB PO SCH (08:11)
[2024-05-09] MEDS: FOLIC ACID 1 MG TAB PO SCH (08:11)
[2024-05-09] MEDS: FLUTICASONE/VILANTEROL 100/25MCG 14 PUFFS/INHALER INH SCH (08:12)
[2024-05-09] MEDS: BUMETANIDE 1 MG TAB PO SCH (08:12)
[2024-05-09] MEDS: ASPIRIN 81 MG ECTAB PO SCH (08:13)
[2024-05-09 09:39] LABS: Basophils # (auto) 0.06 K/uL (0.00-0.20); Basophils % (auto) 0.7 %; Eosinophils # (auto) 0.26 K/uL (0.00-0.50); Eosinophils % (auto) 3.2 %; Hematocrit (blood only) 31.5 % (42.0-52.0); Hemoglobin 10.1 g/dl (14.0-18.0); Immature Granulocytes # (auto) 0.06 K/uL (0.01-0.20); Immature Granulocytes % (auto) 0.7 %; Lymphocytes # (auto) 0.92 K/uL (1.20-3.40); Lymphocytes % (auto) 11.3 %; Mean Corpuscular Hemoglobin 34.2 pg (25.0-34.0); Mean Corpuscular Hgb Conc 32.1 g/dL (32.0-36.0); Mean Corpuscular Volume 106.8 fL (80.0-100.0); Mean Platelet Volume 10.2 fL (9.4-12.4); Monocytes # (auto) 1.06 K/uL (0.11-0.59); Monocytes % (auto) 13.1 %; Neutrophils # (auto) 5.75 K/uL (1.40-6.50); Platelet Count 288 K/uL (130-400); RDW Coefficient of Variation 13.9 % (11.5-14.5); RDW Standard Deviation 53.5 fL (36.4-46.3); Red Blood Count 2.95 M/uL (4.70-6.10); White Blood Count 8.11 K/ul (4.8-10.8)
[2024-05-09 09:56] LABS: BUN Creatinine Ratio 26.3 (10-20); Calcium 8.8 mg/dl (8.6-10.3); Creatinine Clr Calc Pharmacy 42.9 ml/min; Magnesium 1.9 mg/dl (1.7-2.4); Potassium 4.4 mmol/L (3.5-5.1)
--- NOTE | 2024-05-09 10:09 | Discharge Summary ---
Discharge Summary Date of Service May 09, 2024 Principal Dx & Hospital Course #1 = Principal Diagnosis (1) Cellulitis of right upper extremity: (2) CKD (chronic kidney disease) stage 3, GFR 30-59 ml/min: (3) Chronic obstructive pulmonary disease: (4) CAD (coronary artery disease): Notes For Next Care Provider Medication Changes From Visit Patient will be covered with cephalexin 500 mg 3 times daily for total of 7 days Admission HPI Per Admitting Provider This is an 78-year-old male who has a significant past medical history of CAD, HTN, HLD, COPD, history of tobacco abuse, AAA status post graft, CKD stage III4 who presents to ED secondary to increasing redness to right upper extremity for several days. Of significance patient was recently hospitalized from 04/25 to 04/28 secondary to acute renal failure. He had a Rodrigues catheter placed and and patient was discharged with a catheter, this was removed at facility and his kidney function continued to show improvement, creatinine today came down to 1.6. Patient was admitted here because of a blister/cellulitis over the right antecubital area. During previous admission, he had a skin infiltration at the site of IV. Ultrasound here today showed presence of basilic vein superficial DVT, patient had some erythema around the blister that was formed during previous admission. Patient was treated with ceftriaxone overnight, seen and examined today, overall it is felt that his main issue at this time is a superficial DVT causing right upper extremity swelling. With the receding of cellulitis I feel the patient should be doing well on oral antibiotics, he will be discharged on 7 days of Keflex 500 mg 3 times daily, adjusted for his kidney function. I recommend patient to have a repeat ultrasound of the right upper extremity in about 10 days to monitor if there is any progression of the superficial DVT to involve deep veins requiring anticoagulation. I recommended the blister area to be covered with sterile gauze to prevent any secondary infection. I also recommended patient to have his right upper extremity elevated at least at the same level of his heart to assist with venous drainage. Unfortunately due to his kidney dysfunction, he cannot be recommended and states. Updated Medication List Medication Instructions Recorded Confirmed Type albuterol sulfate 90 mcg/actuation 2 puff inhalation QID PRN 08/20/21 05/08/24 History aerosol inhaler Shortness Of Breath aspirin 81 mg chewable tablet 81 mg PO DAILY 08/20/21 05/08/24 History atorvastatin 10 mg tablet 10 mg PO DAILY 08/20/21 05/08/24 History fluticasone 250 mcg-salmeterol 50 1 inh inhalation BID 08/20/21 05/08/24 History mcg/dose blistr powdr for inhalation (Wixela Inhub) folic acid 1 mg tablet 1 mg PO DAILY 08/20/21 05/08/24 History isosorbide mononitrate 30 mg 30 mg PO DAILY 08/20/21 05/08/24 History tablet,extended release 24 hr lisinopril 20 mg tablet 10 mg PO DAILY 08/20/21 05/08/24 History meclizine 12.5 mg tablet 12.5 mg PO TID 08/20/21 05/08/24 History metoprolol tartrate 50 mg tablet 50 mg PO BID 08/20/21 05/08/24 History nitroglycerin 0.4 mg sublingual 0.4 mg sublingual QID PRN Chest 08/20/21 05/08/24 History tablet Pain bumetanide 1 mg tablet 1 mg PO DAILY 05/08/24 05/08/24 History spironolactone 25 mg tablet 12.5 mg PO DAILY 05/08/24 05/08/24 History cephalexin 500 mg capsule 500 mg PO TID 7 days #21 caps 05/09/24 Rx Hospital Stay Data Consultations 05/08/24 14:09 ED Decision to Admit Stat Diagnostic Imagining Performed 05/08/24 12:15 CT arm [CT forearm RT wo con] Stat 05/08/24 14:36 US venous doppler UE RT Stat Pending Results Patient Have Any Pending Studies at Discharge: Yes Discharge Instructions Given to Patient (Per Discharging Provider) The right upper extremity is preferred to be kept elevated when patient is resting to help with the swelling I prefer the area over the right antecubital area to be covered with a sterile gauze to prevent from secondary contamination and getting worse I prefer patient to have a repeat ultrasound of the right upper extremity in about 10 days preferably on 05/19/2024 to see the progression of the clot Total Time Total Time Spent Total Time Spent (In Minutes): More than 35-minute
--- NOTE | 2024-05-10 09:05 | Hospitalist Progress Note ---
Date of Service May 10, 2024 Assessment & Plan (1) Cellulitis of right upper extremity: Plan: The amount of cellulitis is improving although again this requires oral antibiotic treatment and I am feeling that Keflex by itself should be fine upon discharge likely tomorrow. Part of the erythema around the blister is due to natural healing. I explained to him that he has to keep his arm elevated to assist with resolution of the swelling which he did overnight and today he has much less edema. (2) CKD (chronic kidney disease) stage 3, GFR 30-59 ml/min: Plan: Clinically stable, kidney function has improved to his all-time best of creatinine of 1.6. He does not have Rodrigues catheter anymore. (3) Chronic obstructive pulmonary disease: Plan: Continue with nebulizer as needed along with Breo Ellipta at home dose. (4) CAD (coronary artery disease): Plan: Continue with aspirin and Lipitor and Bumex. Continue with Imdur, lisinopril, metoprolol and Aldactone. Plan Reevaluate tomorrow for possible transition to oral antibiotic and discharge. Admission and Anticipated Discharge Date Admission Date: May 08, 2024 Subjective This is an 78-year-old male who has a significant past medical history of CAD, HTN, HLD, COPD, history of tobacco abuse, AAA status post graft, CKD stage III4 who presents to ED secondary to increasing redness to right upper extremity for several days. Of significance patient was recently hospitalized from 04/25 to 04/28 secondary to acute renal failure. He had a Rodrigues catheter placed and and patient was discharged with a catheter, this was removed at facility and his kidney function continued to show improvement, creatinine today came down to 1.6. Patient was admitted here because of a blister/cellulitis over the right antecubital area. During previous admission, he had a skin infiltration at the site of IV. Ultrasound here showed presence of basilic vein superficial DVT, patient had some erythema around the blister that was formed during previous admission. Patient was treated with ceftriaxone overnight, seen and examined today, overall it is felt that his main issue at this time is a superficial DVT causing right upper extremity swelling. Patient was seen and examined, clinically looks improving, part of the swelling around the blister area seems to be in natural healing erythema. Continue with IV antibiotic with 1 more day. Physical Exam Physical Exam: VITALS: Reviewed. WEIGHT/BMI reviewed. GEN: Healthy appearing, well-developed, NAD. CV: RRR, no m/r/g. LUNGS: CTAB, no w/r/c. ABD: SKIN: Blister over the antecubital area of the right upper extremity, in the process of healing, with some surrounding cellulitic area, overall there is significant recession from previous day of the amount and degree of swelling. Results & Data Results & Data Vital Signs (Past 12 Hours) Vital Signs Temp Pulse Resp BP Pulse Ox O2 Del Method 05/10/24 07:55 36.6 C 68 18 120/78 93 Room Air 05/10/24 06:55 Room Air Laboratory Results Laboratory Results - last 24 hr 05/09/24 08:51 WBC 8.11 RBC 2.95 L Hgb 10.1 L Hct 31.5 L MCV 106.8 H MCH 34.2 H MCHC 32.1 RDW Std Deviation 53.5 H RDW Coeff of Corey 13.9 Plt Count 288 MPV 10.2 Immature Gran % (Auto) 0.7 Neut % (Auto) 71.0 Lymph % (Auto) 11.3 Lewis % (Auto) 13.1 Eos % (Auto) 3.2 Baso % (Auto) 0.7 Neut # (Auto) 5.75 Lymph # (Auto) 0.92 L Lewis # (Auto) 1.06 H Eos # (Auto) 0.26 Baso # (Auto) 0.06 Immature Gran # (Auto) 0.06 Sodium 142 Potassium 4.4 Chloride 109 H Carbon Dioxide 25 Anion Gap 8 BUN 42 H Creatinine 1.60 H D Est Cr Clr Drug Dosing 42.9 eGFR 43.29 BUN/Creatinine Ratio 26.3 H Glucose 114 H Calcium 8.8 Magnesium 1.9 Medications Administered Current Inpatient Medications Acetaminophen (Acetaminophen 325 Mg Tab) 650 mg PO Q4H PRN PRN Reason: pain/fever Stop: 06/07/24 15:46 Last Admin: 05/09/24 00:10 Dose: 650 mg Albuterol (Albuterol Hfa 8 Gm Inhaler) 2 puffs INH QID PRN PRN Reason: Shortness Of Breath Stop: 06/07/24 15:46 Last Admin: 05/10/24 07:14 Dose: 2 puffs Albuterol (Albut/Ipratrop 3mg/0.5mg Neb 3 Ml Vial) 3 ml NEB QIDR PRN; Protocol PRN Reason: sob/wheezing Stop: 06/07/24 15:46 Last Admin: 05/09/24 00:52 Dose: 3 ml Aspirin (Aspirin 81 Mg Ectab) 81 mg PO DAILY [facility] Stop: 06/08/24 08:59 Last Admin: 05/10/24 08:55 Dose: 81 mg Atorvastatin Calcium (Atorvastatin 10 Mg Tab) 10 mg PO DAILY [facility] Stop: 06/08/24 08:59 Last Admin: 05/10/24 08:55 Dose: 10 mg Bumetanide (Bumetanide 1 Mg Tab) 1 mg PO DAILY [facility] Stop: 06/08/24 08:59 Last Admin: 05/10/24 08:55 Dose: 1 mg Fluticasone/Vilanterol (Fluticasone/Vilanterol 100/25mcg 14 Puffs/Inhaler) 1 puffs INH DAILY [facility] Stop: 06/08/24 08:59 Last Admin: 05/10/24 08:55 Dose: 1 puffs Folic Acid (Folic Acid 1 Mg Tab) 1 mg PO DAILY [facility] Stop: 06/08/24 08:59 Last Admin: 05/10/24 08:55 Dose: 1 mg Heparin Sodium (Porcine) (Heparin Sod 5,000 Unit/0.5 Ml Vial) 5,000 units SQ Q8 [facility] Stop: 06/07/24 21:59 Last Admin: 05/10/24 05:11 Dose: 5,000 units Ceftriaxone Sodium (Rocephin) 2,000 mg in 50 mls @ 100 mls/hr IV Q24H [facility] Stop: 05/15/24 20:59 Last Infusion: 05/09/24 21:16 Dose: Infused Isosorbide Mononitrate (Isosorbide [place] Extended Rel 30 Mg Tabcr) 30 mg PO DAILY [facility] Stop: 06/08/24 08:59 Last Admin: 05/10/24 08:55 Dose: 30 mg Lactobacillus Acidophilus (Advanced Probiotic 625 Mg Capsule) 1,250 mg PO DAILY [facility] Stop: 06/08/24 08:59 Last Admin: 05/10/24 08:54 Dose: 1,250 mg Lisinopril (Lisinopril 10 Mg Tab) 10 mg PO DAILY [facility] Stop: 06/08/24 08:59 Last Admin: 05/10/24 08:54 Dose: 10 mg Meclizine HCl (Meclizine 12.5 Mg Tab) 12.5 mg PO TID [facility] Stop: 06/07/24 20:59 Last Admin: 05/10/24 08:55 Dose: 12.5 mg Melatonin (Melatonin 3 Mg Tab) 6 mg PO HS PRN PRN Reason: Sleep Stop: 06/07/24 20:59 Metoprolol Tartrate (Metoprolol Tartrate 50 Mg Tab) 50 mg PO BID [facility] Stop: 06/07/24 20:59 Last Admin: 05/10/24 08:55 Dose: 50 mg Ondansetron HCl (Ondansetron Inj 2 Mg/Ml 2 Ml Vial) 4 mg IV Q6H PRN PRN Reason: Nausea Stop: 06/07/24 15:46 Polyethylene Glycol (Polyethylene (Miralax) 17 Gm Pack) 17 gm PO DAILY PRN PRN Reason: Constipation Stop: 06/07/24 15:46 Spironolactone (Spironolactone 12.5 Mg Tab) 12.5 mg PO DAILY [facility] Stop: 06/08/24 08:59 Last Admin: 05/10/24 08:56 Dose: 12.5 mg (2) CKD (chronic kidney disease) stage 3, GFR 30-59 ml/min Chronic kidney disease stage 3 subtype: stage 3b (GFR 30-44) Qualified Code(s): N18.32 - Chronic kidney disease, stage 3b (3) Chronic obstructive pulmonary disease COPD type: unspecified COPD Qualified Code(s): J44.9 - Chronic obstructive pulmonary disease, unspecified (4) CAD (coronary artery disease) Coronary Disease-Associated Artery/Lesion type: [place] artery [place] vs. transplanted heart: [place] heart Associated angina: without angina Qualified Code(s): I25.10 - Atherosclerotic heart disease of [place] coronary artery without angina pectoris
[2024-05-11 07:18] VITALS: RESP 16; TEMP 98.2; O2SAT 94
--- NOTE | 2024-05-11 08:51 | Discharge Summary ---
Discharge Summary Date of Service May 11, 2024 Principal Dx & Hospital Course #1 = Principal Diagnosis (1) Cellulitis of right upper extremity: (2) CKD (chronic kidney disease) stage 3, GFR 30-59 ml/min: (3) Chronic obstructive pulmonary disease: (4) CAD (coronary artery disease): Notes For Next Care Provider Medication Changes From Visit Keflex 500 mg 3 times daily for 7 days Admission HPI Per Admitting Provider This is an 78-year-old male who has a significant past medical history of CAD, HTN, HLD, COPD, history of tobacco abuse, AAA status post graft, CKD stage III4 who presents to ED secondary to increasing redness to right upper extremity for several days. Of significance patient was recently hospitalized from 04/25 to 04/28 secondary to acute renal failure. He had a Rodrigues catheter placed and and patient was discharged with a catheter, this was removed at facility and his kidney function continued to show improvement, creatinine today came down to 1.6. Patient was admitted here because of a blister/cellulitis over the right antecubital area. During previous admission, he had a skin infiltration at the site of IV. Ultrasound here today showed presence of basilic vein superficial DVT, patient had some erythema around the blister that was formed during previous admission. Patient was treated with ceftriaxone overnight, seen and examined today, overall it is felt that his main issue at this time is a superficial DVT causing right upper extremity swelling. With the receding of cellulitis I feel the patient should be doing well on oral antibiotics, after discussing the case with physician at [facility] facility we decided to continue IV antibiotic a bit longer, patient was seen and examined today, he overall seems to be doing much better, will transition to Keflex for 7 more days 500 mg 3 times daily. My recommendations remain the same about doing an ultrasound of the right upper extremity to check about if there is any worsening and progression of the superficial thrombophlebitis into deep veins. I recommend patient to have right upper extremity elevated to resolve the edema. Case was discussed with MD at correctional facility. Discharge Exam VITALS: Reviewed. WEIGHT/BMI reviewed. GEN: Healthy appearing, well-developed, NAD. SKIN: The area over the right antecubital area seems to be generally stable with some minimal rim of healthy looking inflammatory changes. Updated Medication List Medication Instructions Recorded Confirmed Type albuterol sulfate 90 mcg/actuation 2 puff inhalation QID PRN 08/20/21 05/08/24 History aerosol inhaler Shortness Of Breath aspirin 81 mg chewable tablet 81 mg PO DAILY 08/20/21 05/08/24 History atorvastatin 10 mg tablet 10 mg PO DAILY 08/20/21 05/08/24 History fluticasone 250 mcg-salmeterol 50 1 inh inhalation BID 08/20/21 05/08/24 History mcg/dose blistr powdr for inhalation ([employer] [employer]) folic acid 1 mg tablet 1 mg PO DAILY 08/20/21 05/08/24 History isosorbide mononitrate 30 mg 30 mg PO DAILY 08/20/21 05/08/24 History tablet,extended release 24 hr lisinopril 20 mg tablet 10 mg PO DAILY 08/20/21 05/08/24 History meclizine 12.5 mg tablet 12.5 mg PO TID 08/20/21 05/08/24 History metoprolol tartrate 50 mg tablet 50 mg PO BID 08/20/21 05/08/24 History nitroglycerin 0.4 mg sublingual 0.4 mg sublingual QID PRN Chest 08/20/21 05/08/24 History tablet Pain bumetanide 1 mg tablet 1 mg PO DAILY 05/08/24 05/08/24 History spironolactone 25 mg tablet 12.5 mg PO DAILY 05/08/24 05/08/24 History cephalexin 500 mg capsule 500 mg PO TID 7 days #21 caps 05/09/24 Rx Hospital Stay Data Consultations 05/08/24 14:09 ED Decision to Admit Stat Diagnostic Imagining Performed 05/08/24 12:15 CT arm [CT forearm RT wo con] Stat 05/08/24 14:36 US venous doppler UE RT Stat Pending Results Patient Have Any Pending Studies at Discharge: Yes Discharge Instructions Given to Patient (Per Discharging Provider) The right upper extremity is preferred to be kept elevated when patient is resting to help with the swelling I prefer the area over the right antecubital area to be covered with a sterile gauze to prevent from secondary contamination and getting worse I prefer patient to have a repeat ultrasound of the right upper extremity in about 10 days preferably on 05/19/2024 to see the progression of the clot Total Time Total Time Spent Total Time Spent (In Minutes): Less than 30 minutes
[2024-05-11 09:35] VITALS: BP 136/75; PULSE 76
== END 2024-05-11 10:56 ==
LOC: 3N 11:54 → ED 11:54 → 3N 14:53